=== PATIENT | male | born 1950 | race Caucasian/White ===

== ENCOUNTER 2017-07-30 14:07 | Inpatient (IN) | payer MEDICARE ==
[~2017-07-30] VITALS: Ht 177.8 cm; Wt 84.8 kg
[~2017-07-30 14:07] MED LIST: ASPI81TA31 PO
--- NOTE | 2017-07-30 14:15 | NUR ---
PATIENT BROUGHT IN BY FAMILY FOR C/O VISION DISTURBANCE AND FACIAL DROOPING. STATES "HE ATE SHRIMP 2 NIGHTS AGO THEN VOMITIED. THEN THE NEXT DAY HIS SMILE WAS NOT THE SAME" PER . PATIENT IS AWAKE, ALERT, ORIENTED X4. HE HAS NO COMPLAINTS FROM THE NECK DOWN, NO SENSORY OR MOTOR IMPAIRMENTS. HIS ONLY COMPLAINT IS IN THE FACE AND VISION. DR FERRARA CALLED TO BEDSIDE RIGHT AWAY. PLACED ON CONTINUOUS CARDIAC MONITORING. 12 LEAD EKG STARTED. IV PLACED. ACCUCHECK IN PROCESS.
[2017-07-30] MEDS ORDERED: INSULIN SQ (14:18)
--- NOTE | 2017-07-30 14:24 | NUR ---
Blood sugar of 78. Md. notified.
--- NOTE | 2017-07-30 14:26 | NUR ---
Code stroke activated per Dr. Seun munguia.
--- NOTE | 2017-07-30 14:28 | NUR ---
Called TeleStroke, Dr. Alonzo to call back.
--- NOTE | 2017-07-30 14:29 | NUR ---
Dr. Kohli at bedside assessing patient. Code stroke called at around 3013
--- NOTE | 2017-07-30 14:33 | NUR ---
Pt to CT via juan carlos with pharmacy technician program director Opal PHIPPS with ACLS guidelines in place.
--- NOTE | 2017-07-30 14:40 | NUR ---
Dr. Kohli speaking with (neuro) via telephone.
[2017-07-30 14:44] LABS: BASOPHILS % (AUTO) 0.5 % (0.0-2.0); EOSINOPHILS # (AUTO) 0.2 K/uL (0.0-0.7); EOSINOPHILS % (AUTO) 1.7 % (0.0-7.0); HEMATOCRIT 39.9 % (40-50); HEMOGLOBIN 13.3 G/DL (14.0-18.0); LYMPHOCYTES # (AUTO) 2.1 K/UL (0.8-4.8); MEAN CORPUSCULAR HEMOGLOBIN 31.9 UUG (27.0-31.0); MEAN CORPUSCULAR HGB CONC 33 g/dL (32.0-37.0); MEAN CORPUSCULAR VOLUME 95.5 FL (82.0-92.0); MONOCYTES # (AUTO) 0.7 K/UL (0.1-1.30); MONOCYTES % (AUTO) 8.1 % (0.0-11.0); NEUTROPHILS # (AUTO) 6.1 K/UL (1.8-8.9); NEUTROPHILS % (AUTO) 66.7 % (38.5-71.5); PLATELET COUNT (AUTO) 177 K/UL (150-450); RED BLOOD CELL COUNT(AUTO) 4.18 MIL/UL (4.7-6.1); WHITE BLOOD COUNT (AUTO) 9.1 K/UL (4.0-11.2)
--- NOTE | 2017-07-30 14:48 | NUR ---
Patient back from CT. accompanied by rn.
[2017-07-30 14:52] LABS: CREATININE 2.7 mg/dL (0.6-1.3); POTASSIUM 3.9 mmol/L (3.5-5.1)
--- NOTE | 2017-07-30 15:20 | NUR ---
PATIENT SI AWAKE AND ALERT WITH NO NEW COMPLAINTS. HE WAS SABLE TO SWALLOW WATER WITH NO DIFFICULTY AT ALL. HE STATES HE HAD FRUIT AND EGGS THIS MORNING EVEN WITH HIS FACIAL DROOP.
--- NOTE | 2017-07-30 16:30 | NUR ---
PATIENT AND FAMILY AWARE OF PENDING ADMISSION.
--- NOTE | 2017-07-30 16:42 | NUR ---
REPORT GIVEN TO JULIO CESAR PHIPPS.
--- NOTE | 2017-07-30 17:44 | NUR ---
WAITING FOR DR WEN TO CALL BACK SO PATIENT CAN BE ADMITTED TO FLOOR.
[2017-07-30 18:57] VITALS: BP 150/68
[2017-07-30 20:54] VITALS: BP 146/68
[2017-07-31 00:05] VITALS: BP 150/72
--- NOTE | 2017-07-31 01:15 | NUR ---
RECEIVED PATIENT ALERT AND ORIENTED X4 IN BED. VSS. VISIBLE FACIAL ASYMMETRY WITH COMPLAINT OF DOUBLE VISION ON RT EYE. OTHERWISE PATIENT HAS NO OTHER NEUROLOGICAL DEFICIT NOTED. SEEN BY DR. WEN IN THE ROOM. NIHSS SCORE DONE SCORE OF 5 NOTED TO MD. SWALLOWING EVAL DONE BEFORE ORAL INTAKE. GIVEN DOSE OF ASPIRIN ORDERED. STARTED IV FLUIDS 1/2 NSS AT 70 ML/HR. STARTED DVT PUMPS. PT,OT,ST,CM AND PAYROLL MASTER ARE CONSULTED ORDERED. OTHERWISE PATIENT IS SLEEPING RIGHT NOW, WILL CONT TO MONITOR NEUROLOGIC STATUS.
[2017-07-31 05:35] VITALS: BP 152/74
--- NOTE | 2017-07-31 06:18 | NUR ---
NO CHANGE ON NEUROLOGIC STATUS. NO RESPIRATORY DISTRESS. BP STABLE. KEPT SAFE AND MONITORED. CALL LIGHT WITHIN REACH.
[2017-07-31 06:35] LABS: BASOPHILS # (AUTO) 0.1 K/uL (0.0-8.0); BASOPHILS % (AUTO) 0.7 % (0.0-2.0); EOSINOPHILS # (AUTO) 0.2 K/uL (0.0-0.7); EOSINOPHILS % (AUTO) 2.8 % (0.0-7.0); HEMATOCRIT 38.7 % (40-50); HEMOGLOBIN 12.8 G/DL (14.0-18.0); LYMPHOCYTES % (AUTO) 23.3 % (20.5-51.5); MEAN CORPUSCULAR HEMOGLOBIN 31.6 UUG (27.0-31.0); MEAN CORPUSCULAR HGB CONC 33 g/dL (32.0-37.0); MEAN CORPUSCULAR VOLUME 95.1 FL (82.0-92.0); MONOCYTES # (AUTO) 0.7 K/UL (0.1-1.30); MONOCYTES % (AUTO) 8.5 % (0.0-11.0); NEUTROPHILS # (AUTO) 5.6 K/UL (1.8-8.9); NEUTROPHILS % (AUTO) 64.7 % (38.5-71.5); PLATELET COUNT (AUTO) 169 K/UL (150-450); RED BLOOD CELL COUNT(AUTO) 4.06 MIL/UL (4.7-6.1); WHITE BLOOD COUNT (AUTO) 8.6 K/UL (4.0-11.2)
[2017-07-31 07:12] LABS: THYROID STIMULATING HORMONE 1.138 mIU/mL (0.358-3.740)
[2017-07-31 07:22] LABS: BILIRUBIN,TOTAL 0.5 mg/dL (0.2-1.0); CREATININE 2.4 mg/dL (0.6-1.3); MAGNESIUM 1.9 mg/dL (1.8-2.4); PHOSPHOROUS 3.8 mg/dL (2.5-4.9); POTASSIUM 3.6 mmol/L (3.5-5.1); TOTAL PROTEIN, SERUM 6.4 g/dL (6.4-8.2)
[2017-07-31 09:57] VITALS: BP 159/77
--- NOTE | 2017-07-31 10:08 | NUR ---
PATIENT PARTICIPATED WITH PT. AMBULATED AROUND THE UNIT WITH NO DIFFICULTY NOTED. TOLERATED WELL.
[2017-07-31 11:50] VITALS: BP 166/73
[2017-07-31 12:09] LABS: *BILIRUBIN,URIN NEGATIVE (NEGATIVE); *BLOOD, URINE 1+ (NEGATIVE); *CLARITY,URINE CLEAR (CLEAR); *COLOR,URINE YELLOW (YELLOW); *KETONES,URINE NEGATIVE (NEGATIVE); *UROBILINOGEN,URINE 0.2 E.U./dl (NORMAL); LEUKOCYTE ESTERASE ,URINE NEGATIVE (NEGATIVE); NITRITE, URINE NEGATIVE (NEGATIVE); UGLUCOSE TRACE (NEGATIVE)
[2017-07-31 12:11] LABS: *PROTEIN,URINE 3+ (NEGATIVE)
[2017-07-31 12:38] LABS: BACTERIA,URINE FEW /HPF (NONE SEEN); SQUAMOUS EPITHELIAL CELL,UR FEW /HPF (NONE SEEN); WBC,URINE 0-3 /HPF (0-3)
[2017-07-31 12:58] LABS: *AMPHETAMINE, URINE NEGATIVE (NEGATIVE); *BARBITURATE, URINE NEGATIVE (NEGATIVE); *CANNABINOID, URINE NEGATIVE (NEGATIVE); *COCCAINE, URINE NEGATIVE (NEGATIVE); *OPIATE, URINE NEGATIVE (NEGATIVE); *PHENCYCLIDINE SCREEN,URINE NEGATIVE (NEGATIVE)
--- NOTE | 2017-07-31 13:50 | NUR ---
PATIENT PULLED IV OUT, TOOK TELEMONITOR OFF AND GOT DRESSED. PATIENT'S AT BEDSIDE, STATES PATIENT, "IS MAD AND WANTS TO GO HOME." ENCOURAGED PATIENT TO STAY A LITTLE LONGER TO TALK TO THE MD. AGREED TO WAIT A LITTLE LONGER. INDIO CABEZAS CUSTOMER SERVICES SUPERVISOR NOTIFIED.
[2017-07-31 15:14] VITALS: BP 169/90
--- NOTE | 2017-07-31 15:15 | NUR ---
PATIENT SEEN BY DR. KELLY
[2017-07-31] MEDS ORDERED: PRED20TA PO ×3 (16:01→16:07)
[2017-07-31] MEDS ORDERED: PRED-170 PO (16:01)
[2017-07-31] MEDS ORDERED: AMLO5TAB2 PO (16:01)
[2017-07-31] MEDS ORDERED: ACET325T53 PO (16:01)
[2017-07-31] MEDS ORDERED: ATOR40TA PO (16:01)
[2017-07-31] MEDS ORDERED: POLY15DR27 RIGHTEYE (16:01)
[2017-07-31] MEDS ORDERED: PRED10TA PO (16:01)
[2017-07-31] MEDS ORDERED: VALA500T PO (16:01)
[2017-07-31] MEDS ORDERED: PRED50TA PO (16:10)
--- NOTE | 2017-07-31 16:57 | NUR ---
DISCHARGING PATIENT HOME IN A STABLE CONDITION. DISCHARGE INSTRUCTIONS PROVIDED TO PATIENT AND HIS , MEGAN. LIST OF BELONGING SIGNED AND ALL WAS TAKEN. STROKE S/S PROVIDED AND BOTH WHERE ABLE TO VOIDED S/S OF STROKE AND WHAT TO CALL 911 IF IT HAPPENS. STATES WILL FLU WITH PCP AT [facility] TOMORROW. REFUSED TO REVIEW PRESCRIPTIONS WITH PHARMACIST. DIET ORDERS AND SMOKING CESSATION AND TEACHING DISCUSSED WITH PATIENT AND HIS , VOICED UNDERSTANDING. STATES WILL RECEIVE PNA VACC ELSE WHERE. PATIENT LEAVING VIA PRIVET CAR ACCOMPANIED BY HIS .
== END 2017-07-31 17:30 | disposition home or self-care (01) | DRG 74 ==
LOC: ER 14:07 → TELE 17:56
PROVIDERS: ADMIT Internal Medicine; ATTEND Internal Medicine
DX: G51.0 Bell's palsy (principal); E11.22 Type 2 diabetes mellitus with diabetic chronic kidney disease; I13.10 Hypertensive heart and chronic kidney disease without heart failure, with stage 1 through stage 4 chronic kidney disease, or unspecified chronic kidney disease; J98.11 Atelectasis; E11.51 Type 2 diabetes mellitus with diabetic peripheral angiopathy without gangrene; E88.09 Other disorders of plasma-protein metabolism, not elsewhere classified; E78.5 Hyperlipidemia, unspecified; D53.9 Nutritional anemia, unspecified; N18.9 Chronic kidney disease, unspecified; Z86.73 Personal history of transient ischemic attack (TIA), and cerebral infarction without residual deficits; F17.210 Nicotine dependence, cigarettes, uncomplicated; H53.2 Diplopia; R94.31 Abnormal electrocardiogram [ECG] [EKG]; H02.401 Unspecified ptosis of right eyelid
CPT/HCPCS: 36415; 70030-TC; 70450; 71010; 80307; 83605; 83735; 84100; 84443; 85025; 85651; 85730; 87040; 87086; 92523; 92610; 93005; 93307; 93880; A4663; J1815; J3490; J7512

== ENCOUNTER 2019-02-17 18:08 | Emergency (ER) | payer MEDICARE ==
[~2019-02-17] VITALS: Ht 175.3 cm; Wt 80.3 kg
[~2019-02-17 18:08] MED LIST changes: +ACET325T53 PO; +AMLO5TAB9 PO; +ATOR40TA PO; +INSULIN SQ; +POLY15DR27 RIGHTEYE; +PRED10TA PO; +PRED20TA PO; +PRED50TA PO; +VALA500T PO
--- NOTE | 2019-02-17 18:27 | NUR ---
PT A/OX4, PRESENTS TO THE ER C/O PAIN IN L FOOT. UPON INSPECTION, WOUND PRESENT ON LATERAL ASPECT OF L FOOT. PT REPORTS HE WAS ON ORAL ANTIBIOTICS W/ UNKNOWN TOPICAL OINTMENT BUT THE PAIN WORSENED TODAY. PT REPORTS PROVOKED PAIN UPON WEIGHT BEARING, SHARP IN QUALITY, DOES NOT RADIATE, 10/10, CONSTANT. PT DENIES C/P, SOB, N/V/D, DIZZINESS, HEADACHE.
--- NOTE | 2019-02-17 18:51 | NUR ---
AMI ULLOA AT BEDSIDE FOR MSE.
--- NOTE | 2019-02-17 19:02 | NUR ---
Patient discharged to home in stable conditon. Written and verbal after care instructions given. Patient verbalizes understanding of instructions. ALL BELONGINGS W/ PT. PT SELF-AMBULATED W/O DIFFICULTY.
[2019-02-17 19:03] VITALS: BP 141/62
== END 2019-02-17 19:03 | disposition home or self-care (01) ==
LOC: ER 18:08
DX: L84 Corns and callosities (principal); I10 Essential (primary) hypertension; E78.00 Pure hypercholesterolemia, unspecified; F17.210 Nicotine dependence, cigarettes, uncomplicated; E11.9 Type 2 diabetes mellitus without complications; Z79.82 Long term (current) use of aspirin; Z79.4 Long term (current) use of insulin; Z79.899 Other long term (current) drug therapy
CPT/HCPCS: A4663

== ENCOUNTER 2019-09-20 02:54 | Inpatient (IN) | payer MEDICARE ==
[~2019-09-20] VITALS: Ht 172.7 cm; Wt 71.7 kg
--- NOTE | 2019-09-20 02:55 | NUR ---
MD AT BEDSIDE FORHX AND PHYSICAL PT C/O 06/26 CHEST PN ABLE TO SPEAK CLEAR AND COMPLETE SENTENCES, IN [place] FAMILY TRANSLATED DENIES CHANGESE IN LOC +HX OF BELLS PALSY, +SURGERY TO L HAND SIDERAILSX2 UP BED AT LOWEST POSITION
[2019-09-20] MEDS ORDERED: NITROGLYCERIN 0.4 MG/TAB BOTTLE SL ONE ×2 (03:07→03:15)
--- NOTE | 2019-09-20 03:16 | NUR ---
After 1st dose of nitro SL pain is down to a 5/10 from 8/10 chest discomfort. Gave 2nd dose of nitro sub lingual.
[2019-09-20 03:22] LABS: BASOPHILS # (AUTO) 0.1 K/uL (0.0-8.0); BASOPHILS % (AUTO) 1.2 % (0.0-2.0); EOSINOPHILS # (AUTO) 0.3 K/uL (0.0-0.7); EOSINOPHILS % (AUTO) 3.1 % (0.0-7.0); HEMATOCRIT 30.1 % (36.7-47.1); HEMOGLOBIN 10.2 g/dL (12.5-16.3); LYMPHOCYTES # (AUTO) 1.5 K/uL (20.0-40.0); LYMPHOCYTES % (AUTO) 14.3 % (20.5-51.5); MEAN CORPUSCULAR HEMOGLOBIN 32.4 uug (23.8-33.4); MEAN CORPUSCULAR HGB CONC 34 g/dL (32.5-36.3); MONOCYTES # (AUTO) 0.6 K/uL (2.0-10.0); NEUTROPHILS # (AUTO) 7.7 K/uL (1.8-8.9); NEUTROPHILS % (AUTO) 75.4 % (38.5-71.5); PLATELET COUNT (AUTO) 164 K/uL (152-348); RED BLOOD CELL COUNT(AUTO) 3.14 MIL/uL (4.06-5.63); WHITE BLOOD COUNT (AUTO) 10.2 K/uL (3.6-10.2)
--- NOTE | 2019-09-20 03:22 | NUR ---
After 2nd dose of Nitro pain is 3/10 chest discomfort. Gave 3rd dose of nitro sublingual. BP 124/58, HR 82, 02 sat 92%.
[2019-09-20] MEDS ORDERED: NITROGLYCERIN OINT 1 GM PACKET TP ONE ×2 (03:29→03:30)
[2019-09-20] MEDS ORDERED: ONDANSETRON 4 MG/2 ML VIAL ONE (03:29)
[2019-09-20] MEDS ORDERED: MORPHINE SULFATE 2 MG/1 ML DISP.SYRIN ONE (03:29)
[2019-09-20] MEDS ORDERED: ONDANSETRON 4 MG/2 ML VIAL IV ONE (03:30)
[2019-09-20] MEDS ORDERED: MORPHINE SULFATE 2 MG/1 ML DISP.SYRIN IV ONE (03:30)
[2019-09-20 03:41] LABS: CREATININE 4.5 mg/dL (0.6-1.3); POTASSIUM 4.5 mmol/L (3.5-5.1)
--- NOTE | 2019-09-20 03:45 | NUR ---
BP 114/56 HR 69 SPO2 93% PT C/O HEADACHE 01/24 CHEST PN AT 12/27 ABLE TO TOLERATE IV PN MEDS ORDERED KEPT WARM DRY AND COMFORTABLE SIDERAILSX2 UP BED AT LOWEST POSITION
[2019-09-20] MEDS ORDERED: lantus SUBCUT (03:50)
[2019-09-20] MEDS ORDERED: FOLI0.8T2 PO (03:50)
[2019-09-20] MEDS ORDERED: TRAZ-182 PO (03:50)
[2019-09-20] MEDS ORDERED: AMLO10TA7 PO (03:50)
[2019-09-20] MEDS ORDERED: sodium bicarbonate PO (03:50)
[2019-09-20 03:54] LABS: BILIRUBIN,DIRECT 0.1 mg/dL (0.0-0.2); BILIRUBIN,TOTAL 0.5 mg/dL (0.2-1.0); TOTAL PROTEIN, SERUM 7.1 g/dL (6.4-8.2)
[2019-09-20] MEDS ORDERED: ASPIRIN 325 MG TABLET ONE (04:00)
[2019-09-20] MEDS ORDERED: ASPIRIN 325 MG TABLET PO ONE (04:00)
--- NOTE | 2019-09-20 04:08 | NUR ---
CALL FOR BED DONE
--- NOTE | 2019-09-20 04:14 | NUR ---
MARTIN HARPER ON THE PHONE WITH DR GEORGE PT WILL BE ADMITTED TO [facility] (STILL PENDING) DX NON STEMI
[2019-09-20] MEDS ORDERED: Z GUARD REMEDY PASTE 57 GM TUBE TOP PRN (04:15)
[2019-09-20] MEDS ORDERED: ACETAMINOPHEN 325 MG TABLET PO PRN (04:15)
[2019-09-20] MEDS ORDERED: MAGNESIUM HYDROXIDE 30 ML LIQUID UDC PO PRN (04:15)
[2019-09-20] MEDS ORDERED: MORPHINE SULFATE 2 MG/1 ML DISP.SYRIN IV PRN ×2 (04:15→06:30)
[2019-09-20] MEDS ORDERED: HYDROCODONE/APAP 5-325MG TABLET PO PRN (04:15)
[2019-09-20] MEDS ORDERED: TEMAZEPAM 15 MG CAPSULE PO PRN (04:15)
[2019-09-20] MEDS ORDERED: DEXTROSE 50% 50 ML DISP.SYRIN IV PRN (04:15)
[2019-09-20] MEDS ORDERED: ONDANSETRON 4 MG/2 ML VIAL IV PRN (04:15)
[2019-09-20] MEDS ORDERED: NITROGLYCERIN 0.4 MG/TAB BOTTLE SL PRN ×2 (04:15→06:33)
--- NOTE | 2019-09-20 04:35 | NUR ---
NOTE: NO BLOOD DRAW AND NO BP ON LEFT ARM PER FAMILY, PT HAS HAD A FISTULA ON LEFT WRIST ENDORSED PT MIGHT UNDERGO DIALYSIS IN THE NEAR FUTURE
--- NOTE | 2019-09-20 04:49 | NUR ---
HAND OFF AND SBAR GIVEN TO AIDA PHIPPS PT WILL BE ADMITTED TO [facility] RM 312 UNDER MARTIN HARPER DX NON STEMI ALL BELONGINGS W/ PT, BELONGINGS LIST SIGNED
--- NOTE | 2019-09-20 04:58 | NUR ---
PT IS ASLEEP BUT EASILY ROUSED NAD KEPT WARM DRY AND COMFORTABLE SIDERAILSX2 UP BED AT LOWEST POSITION
--- NOTE | 2019-09-20 05:00 | NUR ---
PT TRANSFERRED TO [facility] BY [facility]
--- NOTE | 2019-09-20 05:20 | NUR ---
Received patient from ED RN via juan carlos, accompanied by ED RN. Patient awake and alert and was able to ambulate to hospital bed. Patient made comfortable in bed. Noted with IV access on right AC patent and intact. Per patient, he no longer has any chest pain and no other complaints at the moment. Attended all needs. Will continue to monitor.
[2019-09-20 05:30] VITALS: BP 123/61
[2019-09-20] MEDS: BLOOD SUGAR DIAGNOSTIC 1 EACH STRIP VI SCH ×3 (06:35→16:34)
[2019-09-20] MEDS ORDERED: PANTOPRAZOLE SODIUM 40 MG TABLET.DR PO SCH (07:00)
--- NOTE | 2019-09-20 07:30 | NUR ---
Awake, alert, oriented x 4. Denies chest pain, not in distress. Tele 1st degree AVB
[2019-09-20 08:07] VITALS: BP 113/54
[2019-09-20] MEDS ORDERED: FOLIC ACID/VITAMIN B COMP W-C TABLET PO SCH (09:00)
[2019-09-20] MEDS ORDERED: ASPIRIN 81 MG TAB.CHEW PO SCH (09:00)
[2019-09-20] MEDS ORDERED: AMLODIPINE 10 MG TABLET PO SCH (09:00)
[2019-09-20] MEDS ORDERED: METOPROLOL TARTRATE 25 MG TABLET PO SCH (09:15)
[2019-09-20] MEDS ORDERED: HEPARIN/D5W DRIP 500 ML IV PRN (09:45)
[2019-09-20] MEDS ORDERED: HEPARIN SODIUM,PORCINE 5,000 UNITS/ML VIAL IV PRN (10:00)
[2019-09-20] MEDS ORDERED: HEPARIN SODIUM,PORCINE 5,000 UNITS/ML VIAL IV ONE (10:15)
--- NOTE | 2019-09-20 10:30 | NUR ---
Seen and examined by Button Tufting Machine Operator Dr. Chin, discussed condition and plan of care with patient and family at bedside. Heparin drip started at 1100 units at 22ml/hr with bolus given.
[2019-09-20 11:52] VITALS: BP 116/61
[2019-09-20] MEDS: INSULIN REGULAR, HUMAN 300 UNIT/3 ML VIAL SQ PRN ×2 (12:12→16:35)
--- NOTE | 2019-09-20 12:30 | NUR ---
O2 sat RA 84%.. Placed on O2 at 4L/NC with O2 sat of 88% only. Placed on O2 at 8L/mask, O2 sat to 90%, increased to 10l/mask with O2 sat of 94-96%. Another IV site placed to right forearm.
[2019-09-20] MEDS ORDERED: FUROSEMIDE 40 MG/4 ML VIAL IV ONE ×2 (13:45→16:30)
--- NOTE | 2019-09-20 13:52 | NUR ---
Changes in rhythm, prolonged block to 0.4 with PVC. O2 per mask ay 10L O2 SAT 94%. Dr. Chin informed with orders for CXR done. Lasix to be given. Echocardiogram done. Dr. Washington informed.
[2019-09-20 14:07] VITALS: BP 125/63
[2019-09-20 15:15] VITALS: BP 138/65
--- NOTE | 2019-09-20 15:16 | NUR ---
Critical lab for troponin [address] Chin. With urine output of 100ml. Will moniotr urine output in the next hour. ABG ordered.. Latest VS, BP 138/65 HR 71 RR 22 92% at 10L/mask
[2019-09-20 15:36] LABS: ABG BASE EXCESS -5.9 mmol/L; ABG HCO3 18.4 mmol/L; ABG PCO2 31.8 mmHg (35.0-45.0); ABG PH 7.381 (7.350-7.450); ABG PO2 49.4 mmHg (75.0-100.0); ABG SITE RIGHT BRACHIAL; ABG TOTAL HEMOGLOBIN 9.7 G/dL (13.5-18.0); COHb 1.4 % (0.5-1.5); MetHb 0.1 % (0.0-1.5); O2Hb 82.9 % (94.0-97.0)
--- NOTE | 2019-09-20 16:37 | NUR ---
Assisted to the bathroom, urinal provided but patient unable to measure, but medium amount per patient, Lasix order not given. Accepted at [facility]. To be transferred with Heparin drip. Transport corn picker arranged for 6 pm.
--- NOTE | 2019-09-20 18:30 | NUR ---
Called Raghav[facility] of [facility] Intake, report given to Jeannette PHIPPS, [facility]. Patient will be gong to 6SW RM [id number].
--- NOTE | 2019-09-20 19:40 | NUR ---
Discharged to [facility], with Heparin drip at 1100 units/hr, O2 at 6L/mask with O2 sat of 94% via [facility] ambulance
[2019-09-20] MEDS ORDERED: INSULIN GLARGINE,HUM 300 UNITS/3 ML CARTRIDGE SQ SCH (21:00)
[2019-09-20] MEDS ORDERED: TRAZODONE 50 MG TABLET PO SCH (21:00)
[2019-09-20] MEDS ORDERED: ATORVASTATIN 40 MG TABLET PO SCH (21:00)
[2019-09-20] MEDS ORDERED: LANTUS SUBCUT SCH (21:00)
[2019-09-21] MEDS ORDERED: ASPIRIN 81 MG TAB.CHEW PO SCH (09:00)
== END 2019-09-20 21:52 | disposition short-term general hospital (02) | DRG 280 ==
LOC: ER 02:55 → TELE-TD3 04:50
PROVIDERS: ADMIT Nurse Practitioner Acute Care; ATTEND Internal Medicine
DX: I21.4 Non-ST elevation (NSTEMI) myocardial infarction (principal); I50.33 Acute on chronic diastolic (congestive) heart failure; I13.2 Hypertensive heart and chronic kidney disease with heart failure and with stage 5 chronic kidney disease, or end stage renal disease; N18.5 Chronic kidney disease, stage 5; E11.22 Type 2 diabetes mellitus with diabetic chronic kidney disease; F17.210 Nicotine dependence, cigarettes, uncomplicated; Z86.73 Personal history of transient ischemic attack (TIA), and cerebral infarction without residual deficits; Z79.82 Long term (current) use of aspirin; E11.51 Type 2 diabetes mellitus with diabetic peripheral angiopathy without gangrene; I25.10 Atherosclerotic heart disease of native coronary artery without angina pectoris; I70.0 Atherosclerosis of aorta; I44.0 Atrioventricular block, first degree; G51.0 Bell's palsy; E78.5 Hyperlipidemia, unspecified; D63.8 Anemia in other chronic diseases classified elsewhere; E78.00 Pure hypercholesterolemia, unspecified; Z79.899 Other long term (current) drug therapy; R06.03 Acute respiratory distress
CPT/HCPCS: 36415; 36600; 70030-TC; 71045; 85025; 85730; 93005; 93307; G0378; J1644; J1815; J1940; J2270; J2405

== ENCOUNTER 2021-10-21 11:31 | Inpatient (IN) | payer MEDICARE, OTHER ==
[~2021-10-21] VITALS: Ht 177.8 cm; Wt 81.6 kg
[~2021-10-21 11:31] MED LIST changes: -ACET325T53 PO; +AMLO10TA59 PO; -AMLO5TAB9 PO; +FOLI0.8T2 PO; -INSULIN SQ; -POLY15DR27 RIGHTEYE; -PRED10TA PO; -PRED20TA PO; -PRED50TA PO; +TRAZ-182 PO; -VALA500T PO; +lantus SUBCUT; +sodium bicarbonate PO
--- NOTE | 2021-10-21 11:55 | NUR ---
PT IS IN ROOM #2A. DR GEORGE EVALUATED THE PT.
[2021-10-21] MEDS ORDERED: ONDANSETRON 4 MG/2 ML VIAL IV ONE (12:00)
[2021-10-21] MEDS ORDERED: NEOMY/BACITRA/POLYMYXIN B OINT UD PACKET TP ONE ×2 (12:00→12:20)
[2021-10-21] MEDS ORDERED: MORPHINE SULFATE 2 MG/1 ML DISP.SYRIN IV ONE (12:00)
[2021-10-21] MEDS ORDERED: CLOP75TA33 PO (12:10)
[2021-10-21] MEDS ORDERED: ROSU20TA2 PO (12:10)
[2021-10-21] MEDS ORDERED: OMEG1CAP55 PO (12:10)
[2021-10-21] MEDS ORDERED: LISI10TA29 PO (12:10)
[2021-10-21] MEDS ORDERED: MELA5TAB PO (12:10)
[2021-10-21] MEDS ORDERED: GABA-532 PO (12:10)
[2021-10-21] MEDS ORDERED: APIX2.5T PO (12:10)
[2021-10-21] MEDS ORDERED: CARV3.122 PO (12:10)
[2021-10-21] MEDS ORDERED: SUCR500T PO (12:10)
[2021-10-21] MEDS ORDERED: INSU100C4 SQ (12:11)
[2021-10-21 12:16] LABS: MEAN CORPUSCULAR HEMOGLOBIN 33.3 uug (23.8-33.4); MEAN CORPUSCULAR VOLUME 97.7 fL (73.0-96.2); PLATELET COUNT (AUTO) 152 K/uL (152-348)
[2021-10-21] MEDS ORDERED: MORPHINE SULFATE 2 MG/1 ML DISP.SYRIN ONE (12:19)
[2021-10-21] MEDS ORDERED: ONDANSETRON 4 MG/2 ML VIAL ONE (12:19)
[2021-10-21 12:21] LABS: CARBON DIOXIDE 28 mmol/L (21-32); CHLORIDE 101 mmol/L (98-107); CREATININE 5.3 mg/dL (0.6-1.3); GLUCOSE 181 mg/dL (74-106); POTASSIUM 4.8 mmol/L (3.5-5.1); UREA NITROGEN, BLOOD 55 mg/dL (7-18)
[2021-10-21 12:27] LABS: ALANINE AMINOTRANSFERASE 31 U/L (16-63); ALKALINE PHOSPHATASE 89 U/L (50-136); ASPARTATE AMINOTRANSFERASE 18 U/L (15-37); BILIRUBIN,TOTAL 0.6 mg/dL (0.2-1.0); TOTAL PROTEIN, SERUM 7.2 g/dL (6.4-8.2)
--- NOTE | 2021-10-21 15:25 | NUR ---
received from ER per juan carlos awake alert and oriented accompanied by KNITTING MACHINE MECHANIC and son, oriented to bed controls and room set up, tele applied- SB with first degree av block at 58, initial assessment done, initiated safety measures, pt verbalized understanding on instructions given, left arm shunt for dialysis with good bruit and thrill, call light within reach with bed alarm on.
--- NOTE | 2021-10-21 15:34 | NUR ---
REPORT WAS GIVEN TO DEVELOPMENTAL PSYCHOLOGIST. PT WAS TRANSFERED TO ROOM #315.
[2021-10-21 16:00] VITALS: BP 145/47
--- NOTE | 2021-10-21 16:00 | NUR ---
seen by Cadence Monae FAA CERTIFIED POWERPLANT MECHANIC with orders
[2021-10-21] MEDS ORDERED: Medication Not On Formulary EA (Sucroferric Oxyhydroxide (Velphoro) 500 MG) PO SCH (16:30)
[2021-10-21] MEDS ORDERED: ZOLPIDEM 5 MG TABLET PO PRN (16:45)
[2021-10-21] MEDS ORDERED: ACETAMINOPHEN 325 MG TABLET PO PRN (16:45)
[2021-10-21] MEDS ORDERED: MAGNESIUM HYDROXIDE 30 ML LIQUID UDC PO PRN (16:45)
[2021-10-21] MEDS ORDERED: ONDANSETRON 4 MG/2 ML VIAL IV PRN (16:45)
[2021-10-21] MEDS ORDERED: DEXTROSE 50% 50 ML DISP.SYRIN IV PRN (16:45)
[2021-10-21] MEDS: CARVEDILOL 3.125 MG TABLET PO SCH (17:00)
[2021-10-21 17:15] VITALS: BP_SYST 163; BP_SYST 164; BP_DIAS 57; BP_DIAS 60
[2021-10-21 17:20] VITALS: BP 140/52
[2021-10-21] MEDS: GABAPENTIN 100 MG CAPSULE PO SCH (17:48)
[2021-10-21] MEDS: LISINOPRIL 10 MG TABLET PO SCH (17:48)
[2021-10-21] MEDS ORDERED: Medication Not On Formulary EA (Rosuvastatin Calcium (Crestor) 1 TAB) PO SCH (18:00)
--- NOTE | 2021-10-21 18:32 | NUR ---
dinner taken, all needs attended and met, call light within reach, no distress noted
[2021-10-21 20:19] VITALS: BP 141/49
[2021-10-21] MEDS: ATORVASTATIN 40 MG TABLET PO SCH (21:28)
[2021-10-21] MEDS: INSULIN GLARGINE,HUM 300 UNITS/3 ML CARTRIDGE SQ SCH (21:31)
[2021-10-21] MEDS: INSULIN REGULAR, HUMAN 300 UNIT/3 ML VIAL SQ PRN (21:31)
[2021-10-21] MEDS: BLOOD SUGAR DIAGNOSTIC 1 EACH STRIP VI SCH (21:32)
[2021-10-22] VITALS (7 sets, daily range): BP systolic 106–140; BP diastolic 38–58
--- NOTE | 2021-10-22 06:00 | NUR ---
No bleeding noted this shift. pt is in no acute distress.
[2021-10-22] MEDS: BLOOD SUGAR DIAGNOSTIC 1 EACH STRIP VI SCH ×4 (06:17→20:03)
[2021-10-22 06:37] LABS: MEAN CORPUSCULAR HEMOGLOBIN 32.9 uug (23.8-33.4); MEAN CORPUSCULAR VOLUME 97.7 fL (73.0-96.2); PLATELET COUNT (AUTO) 133 K/uL (152-348)
[2021-10-22 06:46] LABS: CARBON DIOXIDE 25 mmol/L (21-32); CHLORIDE 104 mmol/L (98-107); CHOLESTEROL 145 mg/dL (<200); CREATININE 5.9 mg/dL (0.6-1.3); GLUCOSE 156 mg/dL (74-106); HDL CHOLESTEROL 27 mg/dL (40-60); MAGNESIUM 2.3 mg/dL (1.8-2.4); PHOSPHOROUS 4.5 mg/dL (2.5-4.9); POTASSIUM 4.3 mmol/L (3.5-5.1); TRIGLYCERIDES 277 MG/DL (30-150); UREA NITROGEN, BLOOD 61 mg/dL (7-18)
--- NOTE | 2021-10-22 06:55 | NUR ---
uneventful night pt slept comfortable. Pt refused to do orthostatic b/p -pt request to sleep. Pt denies any c/o pain. call light is within reach.
--- NOTE | 2021-10-22 07:58 | NUR ---
Received patient report from millinery department manager nurse. Patient awake upon arrival to room. Patient is AxOx4. Patient showing no immediate signs of distress. Comfort measures provided, with bed in lowest position and call light within reach.
[2021-10-22] MEDS: CARVEDILOL 3.125 MG TABLET PO SCH ×2 (09:00→17:59)
[2021-10-22] MEDS: FOLIC ACID/VITAMIN B COMP W-C TABLET PO SCH (09:08)
[2021-10-22] MEDS: INSULIN REGULAR, HUMAN 300 UNIT/3 ML VIAL SQ PRN ×2 (09:12→12:00)
[2021-10-22] MEDS ORDERED: IV NORMAL SALINE 500 ML IV ONE (13:30)
[2021-10-22] MEDS ORDERED: MECLIZINE HCL 25 MG TABLET PO PRN (13:45)
--- NOTE | 2021-10-22 16:00 | NUR ---
On dialysis. Son at bedside. No acute distress noted. Attempted to change & clean facial wounds. Too painful. Soaking wounds with NS.
[2021-10-22 16:47] LABS: HEMATOCRIT 24.6 % (36.7-47.1); MEAN CORPUSCULAR HEMOGLOBIN 33.5 uug (23.8-33.4); MEAN CORPUSCULAR VOLUME 97.6 fL (73.0-96.2); PLATELET COUNT (AUTO) 132 K/uL (152-348)
[2021-10-22] MEDS ORDERED: EPOETIN ALFA 10,000 UNITS/ML VIAL SQ ONE (17:00)
[2021-10-22] MEDS ORDERED: AMLO10TA59 PO (17:39)
[2021-10-22] MEDS: GABAPENTIN 100 MG CAPSULE PO SCH (18:08)
[2021-10-22] MEDS: LISINOPRIL 10 MG TABLET PO SCH (18:08)
[2021-10-22] MEDS: ATORVASTATIN 40 MG TABLET PO SCH (20:00)
[2021-10-22] MEDS: INSULIN GLARGINE,HUM 300 UNITS/3 ML CARTRIDGE SQ SCH (20:02)
[2021-10-23] VITALS: BP 95/62
[2021-10-23 00:45] VITALS: BP 129/47
[2021-10-23 04:15] VITALS: BP 114/45
--- NOTE | 2021-10-23 05:24 | NUR ---
Slept throughout the night. Wound care done on face. Pt denies pain at this time. Able to make needs known. IV site intact. SR/SB on tele with occasional PVCs. Able to ambulate with assistance and with cane. No distress noted. Will endorse to day shift.
[2021-10-23] MEDS: BLOOD SUGAR DIAGNOSTIC 1 EACH STRIP VI SCH (06:32)
[2021-10-23 06:48] LABS: HEMATOCRIT 25.9 % (36.7-47.1); MEAN CORPUSCULAR HEMOGLOBIN 33.3 uug (23.8-33.4); MEAN CORPUSCULAR VOLUME 96.3 fL (73.0-96.2); PLATELET COUNT (AUTO) 120 K/uL (152-348)
[2021-10-23 07:06] LABS: CARBON DIOXIDE 33 mmol/L (21-32); CHLORIDE 100 mmol/L (98-107); GLUCOSE 145 mg/dL (74-106); PHOSPHOROUS 3.3 mg/dL (2.5-4.9); POTASSIUM 3.8 mmol/L (3.5-5.1); UREA NITROGEN, BLOOD 33 mg/dL (7-18)
--- NOTE | 2021-10-23 07:15 | NUR ---
Received patient asleep in bed. On room air. No signs of acute distress. Bed alarm on for safety. Call light within reach. Will continue to monitor.
[2021-10-23 07:17] LABS: IRON, SERUM 42 ug/dL (50-175)
[2021-10-23] MEDS: FOLIC ACID/VITAMIN B COMP W-C TABLET PO SCH (08:28)
[2021-10-23] MEDS: INSULIN REGULAR, HUMAN 300 UNIT/3 ML VIAL SQ PRN (08:28)
[2021-10-23 08:43] VITALS: BP 140/60
[2021-10-23] MEDS: CARVEDILOL 3.125 MG TABLET PO SCH (08:43)
[2021-10-23] MEDS ORDERED: FOLIC ACID/VITAMIN B COMP W-C TABLET PO SCH (09:00)
--- NOTE | 2021-10-23 10:10 | NUR ---
Patient left hospital AMA. On room air. No signs of acute distress. Wound care treatment done. Wound picture taken and placed in chart. Belongings accounted for and belongings list signed. Dr. Joss Diaz informed. IV access removed. chief communications officer removed. Patient left hospital via private car with son and .
== END 2021-10-23 10:05 | disposition left against medical advice (07) | DRG 73 ==
LOC: ER 11:33 → TELE3 15:11
PROVIDERS: ADMIT Nurse Practitioner Acute Care; ATTEND Nurse Practitioner Acute Care
PROC: 5A1D70Z Performance of Urinary Filtration, Intermittent, Less than 6 Hours Per Day (ICD-10-PCS; principal; 2021-10-22)
DX: G90.8 Other disorders of autonomic nervous system (principal); N18.6 End stage renal disease; I13.2 Hypertensive heart and chronic kidney disease with heart failure and with stage 5 chronic kidney disease, or end stage renal disease; H81.10 Benign paroxysmal vertigo, unspecified ear; S02.2XXA Fracture of nasal bones, initial encounter for closed fracture; W18.39XA Other fall on same level, initial encounter; Z91.81 History of falling; Y92.89 Other specified places as the place of occurrence of the external cause; E11.22 Type 2 diabetes mellitus with diabetic chronic kidney disease; I50.9 Heart failure, unspecified; Z99.2 Dependence on renal dialysis; Z79.4 Long term (current) use of insulin; D63.8 Anemia in other chronic diseases classified elsewhere; E11.9 Type 2 diabetes mellitus without complications; E78.00 Pure hypercholesterolemia, unspecified; E78.5 Hyperlipidemia, unspecified; I25.10 Atherosclerotic heart disease of native coronary artery without angina pectoris; I25.2 Old myocardial infarction; I44.0 Atrioventricular block, first degree; Z79.01 Long term (current) use of anticoagulants; Z79.02 Long term (current) use of antithrombotics/antiplatelets; Z79.82 Long term (current) use of aspirin; Z79.899 Other long term (current) drug therapy; Z82.49 Family history of ischemic heart disease and other diseases of the circulatory system; Z86.73 Personal history of transient ischemic attack (TIA), and cerebral infarction without residual deficits; Z95.5 Presence of coronary angioplasty implant and graft; M48.02 Spinal stenosis, cervical region; Z72.0 Tobacco use
CPT/HCPCS: 36415; 70030-TC; 70450; 70486; 71045; 72125; 73130; 83550; 83735; 84100; 85025; 85730; 93005; 93307; 97161; A4217; A4663; G0378; J0885; J1815; J2270; J2405; J7030; J7040

== ENCOUNTER 2021-12-31 08:49 | Inpatient (IN) | payer MEDICARE, OTHER ==
[~2021-12-31] VITALS: Ht 180.3 cm; Wt 82.6 kg
[~2021-12-31 08:49] MED LIST changes: +APIX2.5T PO; -ASPI81TA31 PO; -ATOR40TA PO; +CARV3.122 PO; +CLOP75TA33 PO; +GABA-532 PO; +INSU100C4 SQ; +LISI10TA29 PO; +MELA5TAB PO; +OMEG1CAP55 PO; +ROSU20TA2 PO; +SUCR500T PO; -TRAZ-182 PO; -sodium bicarbonate PO
[2021-12-31] MEDS ORDERED: NITROGLYCERIN 0.4 MG/TAB BOTTLE SL ONE ×2 (09:00→09:07)
[2021-12-31] MEDS ORDERED: ASPIRIN 325 MG TABLET PO ONE (09:00)
--- NOTE | 2021-12-31 09:02 | NUR ---
Pt c/o CP 6/10 after 1st Nitro, 2nd nitro 0.4 mg SL given, BP 148/73, HR 58.
--- NOTE | 2021-12-31 09:07 | NUR ---
3rd dose of Nitro given for pain /10, Bp is 142/71, HR 60.
[2021-12-31 09:12] LABS: HEMATOCRIT 34.9 % (36.7-47.1); MEAN CORPUSCULAR HEMOGLOBIN 33.1 uug (23.8-33.4); MEAN CORPUSCULAR VOLUME 97.3 fL (73.0-96.2); PLATELET COUNT (AUTO) 149 K/uL (152-348)
--- NOTE | 2021-12-31 09:22 | NUR ---
Pt states his pain is 5/10, no requesting pain med.
[2021-12-31] MEDS ORDERED: ASPIRIN 325 MG TABLET ONE (09:27)
[2021-12-31 09:28] LABS: ALANINE AMINOTRANSFERASE 34 U/L (16-63); ALKALINE PHOSPHATASE 81 U/L (50-136); ASPARTATE AMINOTRANSFERASE 21 U/L (15-37); BILIRUBIN,DIRECT 0.1 mg/dL (0.0-0.2); BILIRUBIN,TOTAL 0.4 mg/dL (0.2-1.0); CARBON DIOXIDE 26 mmol/L (21-32); CHLORIDE 99 mmol/L (98-107); CREATININE 6.8 mg/dL (0.6-1.3); GLUCOSE 177 mg/dL (74-106); TOTAL PROTEIN, SERUM 7.4 g/dL (6.4-8.2); UREA NITROGEN, BLOOD 79 mg/dL (7-18)
--- NOTE | 2021-12-31 10:10 | NUR ---
AMI ULLOA spoke to admitting, DR Flood.
[2021-12-31 11:00] VITALS: BP 135/58
[2021-12-31] MEDS ORDERED: Medication Not On Formulary EA (Sucroferric Oxyhydroxide (Velphoro) 500 MG) PO SCH (11:30)
[2021-12-31] MEDS ORDERED: MORPHINE SULFATE 2 MG/1 ML DISP.SYRIN IV PRN (11:45)
[2021-12-31] MEDS ORDERED: ACETAMINOPHEN 325 MG TABLET PO PRN (11:45)
[2021-12-31] MEDS ORDERED: ONDANSETRON 4 MG/2 ML VIAL IV PRN (11:45)
[2021-12-31 12:00] VITALS: BP 135/58
--- NOTE | 2021-12-31 12:00 | NUR ---
Received pt from ER at 1100. Reporting nurse Kathleen. Pt came into the ER ambulating with complaint of chest pain 07/27. In ER 3 doses of nitroglycerin were administered Q5min. troponin (-), chest xray clear. Pt's rapid covid was negative as well. Pt is dialysis dependent on Mondays and Fridays. He was at his clinic to get dialysis when he reported chest pain. His family then brought him to the ER. Hemodialysis consent signed and placed in chart. Order for dialysis present. Pt is on tele monitor presenting with sinus bradycardia HR 53, 1st degree block with PVCs. He is on room air saturating 98%. BP 135/58. Comfort measures provided, call light within reach. Will continue to monitor pt.
[2021-12-31] MEDS: AMLODIPINE 10 MG TABLET PO SCH (13:52)
[2021-12-31] MEDS ORDERED: LIDOCAINE HCL 1% 20 ML VIAL IJ PRN (14:30)
--- NOTE | 2021-12-31 15:00 | NUR ---
pt is having hemodialysis. HD days are mondays and fridays per Pt and family report.
[2021-12-31 16:30] VITALS: BP 136/69
[2021-12-31] MEDS ORDERED: EPOETIN ALFA 20,000 UNIT/ML ML SQ ONE (17:00)
[2021-12-31] MEDS ORDERED: Medication Not On Formulary EA (Rosuvastatin Calcium (Crestor) 1 TAB) PO SCH (18:00)
[2021-12-31] MEDS ORDERED: GABAPENTIN 100 MG CAPSULE PO SCH ×2 (18:00→21:00)
[2021-12-31] MEDS: APIXABAN 2.5 MG TABLET PO SCH (18:14)
[2021-12-31] MEDS: CARVEDILOL 3.125 MG TABLET PO SCH (18:14)
[2021-12-31] MEDS: [UNRECOGNIZED DRUG - OTHER] PO SCH (18:26)
[2021-12-31] MEDS: SUCROFERRIC OXYHYDROXIDE 500 MG PO SCH (18:26)
--- NOTE | 2021-12-31 18:43 | NUR ---
Pt had 2.5 L removed by hemodialysis today. Vitals post HD: BP 125/63 HR 53 [id number] 97% on room air. pt tolerated HD well.Son is at bedside. Home medications taken to pharmacy and reconciled. Pt tolerated meal well. Gave preferences to Dietary. Comfort measures provided, call light within reach. Will endorse to clerical assigner.
[2021-12-31] MEDS ORDERED: DEXTROSE 50% 50 ML DISP.SYRIN IV PRN (18:45)
[2021-12-31] MEDS ORDERED: INSULIN REGULAR, HUMAN 300 UNIT/3 ML VIAL SQ PRN (18:45)
[2021-12-31] MEDS ORDERED: MELATONIN 3 MG TABLET PO SCH (19:00)
--- NOTE | 2021-12-31 20:00 | NUR ---
RECEIVED PATIENT AWAKE IN BED. A/O X3. VERY PLEASANT WHEN APPROACHED. VS WNL. ON TELE SR/SB WITH OCCASIONAL V-PACING. DENIES ANY PAIN OR DISCOMFORT. NO RESP. DISTRESS NOTED. HEPLOCK INTACT AND PATENT. CALL LIGHT IN REACH. ALL NEEDS ATTENDED, WILL CONTINUE TO MONITOR AND ASSESS.
[2021-12-31 20:09] VITALS: BP 108/56
[2021-12-31] MEDS: BLOOD SUGAR DIAGNOSTIC 1 EACH STRIP VI SCH (20:18)
[2021-12-31] MEDS ORDERED: LISINOPRIL 10 MG TABLET PO SCH (21:00)
[2021-12-31] MEDS ORDERED: INSULIN GLARGINE,HUM 300 UNITS/3 ML CARTRIDGE SQ SCH (21:00)
[2021-12-31] MEDS ORDERED: DOCUSATE SODIUM 100 MG CAPSULE PO SCH (21:00)
[2021-12-31] MEDS ORDERED: LANTUS 10 UNIT SUBCUT SCH (21:00)
[2021-12-31] MEDS ORDERED: ATORVASTATIN 40 MG TABLET PO SCH (21:00)
[2021-12-31 23:57] VITALS: BP 119/54
[2022-01-01 04:06] VITALS: BP 114/54
[2022-01-01] MEDS: BLOOD SUGAR DIAGNOSTIC 1 EACH STRIP VI SCH (06:24)
[2022-01-01 06:46] LABS: HEMATOCRIT 34.8 % (36.7-47.1); MEAN CORPUSCULAR VOLUME 96.7 fL (73.0-96.2); PLATELET COUNT (AUTO) 155 K/uL (152-348)
[2022-01-01] MEDS ORDERED: PANTOPRAZOLE SODIUM 40 MG TABLET.DR PO SCH (07:00)
[2022-01-01 07:20] LABS: ALANINE AMINOTRANSFERASE 30 U/L (16-63); ALKALINE PHOSPHATASE 78 U/L (50-136); ASPARTATE AMINOTRANSFERASE 21 U/L (15-37); BILIRUBIN,TOTAL 0.4 mg/dL (0.2-1.0); CARBON DIOXIDE 27 mmol/L (21-32); CHLORIDE 97 mmol/L (98-107); CHOLESTEROL 163 mg/dL (<200); GLUCOSE 120 mg/dL (74-106); HDL CHOLESTEROL 34 mg/dL (40-60); MAGNESIUM 2.5 mg/dL (1.8-2.4); PHOSPHOROUS 4.7 mg/dL (2.5-4.9); POTASSIUM 4.2 mmol/L (3.5-5.1); TOTAL PROTEIN, SERUM 7.1 g/dL (6.4-8.2); TRIGLYCERIDES 191 MG/DL (30-150); UREA NITROGEN, BLOOD 49 mg/dL (7-18); URIC ACID 4.2 mg/dL (3.5-7.2)
--- NOTE | 2022-01-01 07:20 | NUR ---
Received patient resting in bed. AOx3-4. On room air. No signs of acute distress. Patient denies pain/ discomfort. Patient denies chest pain at this time. IV access patent and intact. Call light within reach. Bed alarm on for safety. Will continue to monitor.
[2022-01-01 08:06] LABS: HEPATITIS B SURFACE AG Negative (Negative)
[2022-01-01 08:37] VITALS: BP 141/59
[2022-01-01] MEDS: AMLODIPINE 10 MG TABLET PO SCH (08:37)
[2022-01-01] MEDS: SUCROFERRIC OXYHYDROXIDE 500 MG PO SCH (08:37)
[2022-01-01] MEDS: [UNRECOGNIZED DRUG - OTHER] PO SCH (08:37)
[2022-01-01] MEDS: APIXABAN 2.5 MG TABLET PO SCH (08:47)
[2022-01-01] MEDS ORDERED: FOLIC ACID/VITAMIN B COMP W-C TABLET PO SCH ×2 (09:00)
[2022-01-01] MEDS ORDERED: CLOPIDOGREL 75 MG TABLET PO SCH (09:00)
[2022-01-01] MEDS: CARVEDILOL 3.125 MG TABLET PO SCH (09:00)
[2022-01-01 09:08] LABS: IRON, SERUM 80 ug/dL (50-175)
--- NOTE | 2022-01-01 11:02 | NUR ---
Patient left hospital against medical advice. Patient AOx3-4. On room air. No signs of acute distress. Patient denied chest pain. Family at bedside. Dr. Shaffer informed of AMA. Belongings accounted for and belongings list signed. IV access removed. ID armband removed. Patient left hospital via private car with family.
[2022-01-01 15:50] LABS: THYROID STIMULATING HORMONE 0.784 mIU/mL (0.358-3.740)
== END 2022-01-01 10:40 | disposition left against medical advice (07) | DRG 205 ==
LOC: ER 08:49 → TELE3 10:19
PROVIDERS: ADMIT Internal Medicine; ATTEND Family Medicine
PROC: 5A1D70Z Performance of Urinary Filtration, Intermittent, Less than 6 Hours Per Day (ICD-10-PCS; principal; 2021-12-31)
DX: M94.0 Chondrocostal junction syndrome [Tietze] (principal); N18.6 End stage renal disease; I13.2 Hypertensive heart and chronic kidney disease with heart failure and with stage 5 chronic kidney disease, or end stage renal disease; D68.59 Other primary thrombophilia; I25.10 Atherosclerotic heart disease of native coronary artery without angina pectoris; R07.9 Chest pain, unspecified; E11.22 Type 2 diabetes mellitus with diabetic chronic kidney disease; E11.65 Type 2 diabetes mellitus with hyperglycemia; I50.9 Heart failure, unspecified; Z99.2 Dependence on renal dialysis; D63.8 Anemia in other chronic diseases classified elsewhere; F32.A Depression, unspecified; I44.0 Atrioventricular block, first degree; Z20.822 Contact with and (suspected) exposure to COVID-19; Z79.01 Long term (current) use of anticoagulants; Z95.5 Presence of coronary angioplasty implant and graft; E78.5 Hyperlipidemia, unspecified; Z95.0 Presence of cardiac pacemaker; D63.1 Anemia in chronic kidney disease; F17.210 Nicotine dependence, cigarettes, uncomplicated; Z74.09 Other reduced mobility; Z86.73 Personal history of transient ischemic attack (TIA), and cerebral infarction without residual deficits; H02.401 Unspecified ptosis of right eyelid; I25.2 Old myocardial infarction; Z79.4 Long term (current) use of insulin
CPT/HCPCS: 36415; 70030-TC; 71045; 83550; 83735; 84100; 84443; 84550; 85025; 86706; 87340; 90937; 93005; 93307; A4663; G0378; J1815; J3490; J7030

== ENCOUNTER 2022-07-19 21:53 | Inpatient (IN) | payer MEDICARE, OTHER ==
[~2022-07-19] VITALS: Ht 180.3 cm; Wt 82.2 kg
[2022-07-19] MEDS ORDERED: ONDANSETRON 4 MG/2 ML VIAL IV ONE (22:15)
[2022-07-19] MEDS ORDERED: ONDANSETRON 4 MG/2 ML VIAL ONE (22:22)
[2022-07-19 23:08] LABS: HEMATOCRIT 25.4 % (36.7-47.1); MEAN CORPUSCULAR HEMOGLOBIN 33.9 uug (23.8-33.4); MEAN CORPUSCULAR VOLUME 100.1 fL (73.0-96.2); PLATELET COUNT (AUTO) 132 K/uL (152-348)
[2022-07-19 23:35] LABS: ALANINE AMINOTRANSFERASE 46 U/L (16-63); ALKALINE PHOSPHATASE 66 U/L (50-136); ASPARTATE AMINOTRANSFERASE 75 U/L (15-37); BILIRUBIN,DIRECT 0.1 mg/dL (0.0-0.2); BILIRUBIN,TOTAL 0.6 mg/dL (0.2-1.0); CARBON DIOXIDE 27 mmol/L (21-32); CHLORIDE 100 mmol/L (98-107); CREATININE 6.5 mg/dL (0.6-1.3); GLUCOSE 221 mg/dL (74-106); LIPASE 104 U/L (73-393); POTASSIUM 3.9 mmol/L (3.5-5.1); TOTAL PROTEIN, SERUM 7.2 g/dL (6.4-8.2); UREA NITROGEN, BLOOD 45 mg/dL (7-18)
--- NOTE | 2022-07-20 00:25 | NUR ---
Dr Mcleod speaking with admitting Rosario Coleman WOOL HANDLER
[2022-07-20] MEDS ORDERED: ONDANSETRON 4 MG/2 ML VIAL IV PRN (01:00)
[2022-07-20] MEDS ORDERED: MORPHINE SULFATE 2 MG/1 ML DISP.SYRIN IV PRN (01:00)
[2022-07-20] MEDS ORDERED: NITROGLYCERIN 0.4 MG/TAB BOTTLE SL PRN (01:00)
[2022-07-20] MEDS ORDERED: DOCUSATE SODIUM 100 MG CAPSULE PO PRN (01:00)
[2022-07-20] MEDS ORDERED: ENOXAPARIN SODIUM 60 MG/0.6 ML DISP.SYRIN SQ SCH (01:00)
--- NOTE | 2022-07-20 01:04 | NUR ---
Dr Mcleod speaking with Dr Viveros for cardio consult
--- NOTE | 2022-07-20 02:48 | NUR ---
report given to Camelia PHIPPS. Patient will go to room 324
[2022-07-20 03:05] LABS: ALANINE AMINOTRANSFERASE 36 U/L (16-63); ALKALINE PHOSPHATASE 59 U/L (50-136); ASPARTATE AMINOTRANSFERASE 78 U/L (15-37); BILIRUBIN,TOTAL 0.5 mg/dL (0.2-1.0); CARBON DIOXIDE 27 mmol/L (21-32); CHLORIDE 99 mmol/L (98-107); CREATININE 6.6 mg/dL (0.6-1.3); GLUCOSE 223 mg/dL (74-106); MAGNESIUM 2.2 mg/dL (1.8-2.4); PHOSPHOROUS 4.1 mg/dL (2.5-4.9); POTASSIUM 3.7 mmol/L (3.5-5.1); TOTAL PROTEIN, SERUM 6.8 g/dL (6.4-8.2); UREA NITROGEN, BLOOD 46 mg/dL (7-18)
--- NOTE | 2022-07-20 03:27 | NUR ---
Pt. admitted to TELE room 314, under care of Rosario Vance OIM ARCHITECT Belongs List completed Camelia PHIPPS aware of patient's arrival
--- NOTE | 2022-07-20 03:40 | NUR ---
Admitted this 71 y/o male from ER via [facility]. Awake, alert and oriented x 3. In no acute distress. Sinus rhythm on tele with HR 70bpm. Oriented to room, staffs, call light, TV remote and bed control. Routine admission care done, plan of care initiated. Call light within reach.
[2022-07-20 04:57] VITALS: BP 143/59
[2022-07-20 05:32] LABS: THYROID STIMULATING HORMONE 0.717 mIU/mL (0.358-3.740)
[2022-07-20 07:28] LABS: HEMATOCRIT 26.8 % (36.7-47.1); MEAN CORPUSCULAR HEMOGLOBIN 34.1 uug (23.8-33.4); MEAN CORPUSCULAR VOLUME 100.1 fL (73.0-96.2); PLATELET COUNT (AUTO) 133 K/uL (152-348)
--- NOTE | 2022-07-20 08:30 | NUR ---
Awake, alert, oriented x 4. Denies chest pain and shortness of breath. Placed on O2 at 1L/NC with O2sat of 99%. Hard stick for blood draw. able to draw PTT after several attempts.
[2022-07-20] MEDS ORDERED: ASPIRIN 81 MG TAB.CHEW PO SCH (09:00)
[2022-07-20] MEDS ORDERED: HEPARIN SODIUM,PORCINE 5,000 UNITS/ML VIAL IV ONE (09:08)
--- NOTE | 2022-07-20 09:30 | NUR ---
PTT 27.4 Heparin 5000 units IV bolus given. Heparin drip started at 1150 unit at 23 ml/hr.
[2022-07-20] MEDS: HEPARIN/D5W DRIP 500 ML IV PRN ×2 (09:32→16:45)
[2022-07-20] MEDS: CLOPIDOGREL 75 MG TABLET PO SCH (11:28)
[2022-07-20] MEDS: ACETAMINOPHEN 325 MG TABLET PO PRN (11:28)
[2022-07-20] MEDS: CARVEDILOL 3.125 MG TABLET PO SCH ×2 (11:28→18:00)
[2022-07-20 11:55] VITALS: BP 142/48
--- NOTE | 2022-07-20 13:00 | NUR ---
EKG done. Report given to Oil Lease Buyer.
[2022-07-20] MEDS ORDERED: DEXTROSE 50% 50 ML DISP.SYRIN IV PRN (14:45)
--- NOTE | 2022-07-20 15:38 | NUR ---
lab called for Troponin level, primary nurse made aware.
--- NOTE | 2022-07-20 15:39 | NUR ---
Troponin [address]. Dr[address] Viveros informed.
--- NOTE | 2022-07-20 15:40 | NUR ---
Unsuccessful with PICC line. Midline , double lumen placed to RUE.
[2022-07-20 16:00] VITALS: BP 149/68
[2022-07-20] MEDS ORDERED: CARVEDILOL 3.125 MG TABLET PO SCH (17:00)
[2022-07-20] MEDS ORDERED: Medication Not On Formulary EA (Rosuvastatin Calcium (Crestor) 1 TAB) PO SCH (18:00)
[2022-07-20] MEDS: BLOOD SUGAR DIAGNOSTIC 1 EACH STRIP VI SCH ×2 (18:00→20:27)
[2022-07-20] MEDS: INSULIN REGULAR, HUMAN 300 UNIT/3 ML VIAL SQ PRN ×2 (18:05→20:30)
--- NOTE | 2022-07-20 18:27 | NUR ---
Hemodialysis ongoing. HR 52. Carvedilol po not given
[2022-07-20] MEDS: GABAPENTIN 100 MG CAPSULE PO SCH (20:18)
[2022-07-20] MEDS: LISINOPRIL 20 MG TABLET PO SCH (20:19)
[2022-07-20] MEDS: ATORVASTATIN 40 MG TABLET PO SCH (20:19)
[2022-07-20 20:24] VITALS: BP 110/60
[2022-07-20] MEDS ORDERED: LISINOPRIL 20 MG TABLET PO SCH (21:00)
[2022-07-20] MEDS: MELATONIN 3 MG TABLET PO PRN (22:23)
[2022-07-21 00:01] VITALS: BP 147/46
[2022-07-21 04:40] VITALS: BP 140/39
[2022-07-21] MEDS: BLOOD SUGAR DIAGNOSTIC 1 EACH STRIP VI SCH ×4 (06:34→20:45)
--- NOTE | 2022-07-21 08:00 | NUR ---
Awake and responsive. No ss of pain or sob satting 98% on 1 lpm. SR on telemetry. Bruit and thrill present on hd site LFA. Needs attended. Kept comfortable. Cont covid precautions. Intermittent coughing noted. Suctioned orally prn. safety precautions in place. Cont to monitor.
[2022-07-21] MEDS: CLOPIDOGREL 75 MG TABLET PO SCH (08:55)
[2022-07-21] MEDS: CARVEDILOL 3.125 MG TABLET PO SCH ×2 (08:55→16:50)
[2022-07-21] MEDS: INSULIN REGULAR, HUMAN 300 UNIT/3 ML VIAL SQ PRN ×4 (08:56→20:45)
[2022-07-21] MEDS ORDERED: ASPIRIN 81 MG TAB.CHEW PO SCH (09:00)
--- NOTE | 2022-07-21 10:57 | NUR ---
Call received from son Margaret and updated. Wants to talk to Dr. Viveros and MD was left a message via secure text regarding family's request. Family wants to transfer patient to [facility]. Gave son's number to ANNETTA Bourgeois to facilitate process.
[2022-07-21] MEDS: HEPARIN/D5W DRIP 500 ML IV PRN (12:21)
--- NOTE | 2022-07-21 12:43 | NUR ---
Patient put on room air per Dr. Esparza's order satting 97-98% at this time. No sob
--- NOTE | 2022-07-21 17:35 | NUR ---
tolerating room air satting 97% no ss of pain or resp distress
[2022-07-21 20:00] VITALS: BP 148/57
[2022-07-21] MEDS: MELATONIN 3 MG TABLET PO PRN (20:26)
[2022-07-21] MEDS: ATORVASTATIN 40 MG TABLET PO SCH (20:26)
[2022-07-21] MEDS: LISINOPRIL 20 MG TABLET PO SCH (20:26)
[2022-07-21] MEDS: GABAPENTIN 100 MG CAPSULE PO SCH (20:26)
[2022-07-22] VITALS: BP 140/58
[2022-07-22 04:00] VITALS: BP 155/53
[2022-07-22] MEDS: BLOOD SUGAR DIAGNOSTIC 1 EACH STRIP VI SCH ×4 (06:45→21:29)
[2022-07-22] MEDS: CARVEDILOL 3.125 MG TABLET PO SCH ×2 (09:34→21:23)
[2022-07-22] MEDS: CLOPIDOGREL 75 MG TABLET PO SCH (09:34)
[2022-07-22] MEDS: INSULIN REGULAR, HUMAN 300 UNIT/3 ML VIAL SQ PRN ×4 (09:34→21:22)
[2022-07-22] MEDS: ACETAMINOPHEN 325 MG TABLET PO PRN (10:49)
[2022-07-22] MEDS: ASPIRIN 325 MG TABLET PO SCH (12:12)
[2022-07-22 12:42] VITALS: BP 152/55
--- NOTE | 2022-07-22 13:57 | NUR ---
COVID swab done as ordered, sent to the lab, awaiting result.
--- NOTE | 2022-07-22 16:32 | NUR ---
Phil (son) requesting MD to give update to PCP Dr Andrea Marina and to him regarding condition and discharge plans. Dr Cornell made aware.
[2022-07-22 16:40] VITALS: BP 144/55
--- NOTE | 2022-07-22 18:32 | NUR ---
Ongoing dialysis at this time. Insulin given per sliding scale. no other concerns identified during the shift. Patient is high risk for fall, walking inside the room without calling for assistance. reoriented the patient, education provided. will endorse to the next shift for continuity of care.
--- NOTE | 2022-07-22 19:40 | NUR ---
Received patient in bed, on going dialysis at this time, no sob no chest pain, tele monitor 1st degree blk, and pacing, then goes to sinus rhythm to 1st degree blk. Patient denies pain at this time, with episode of confusion, cont to monitor.
[2022-07-22 20:00] VITALS: BP 155/75
[2022-07-22] MEDS ORDERED: EPOETIN ALFA-EPBX 10,000 UNIT/ML VIAL IV ONE (21:00)
[2022-07-22] MEDS: GABAPENTIN 100 MG CAPSULE PO SCH (21:23)
[2022-07-22] MEDS: ATORVASTATIN 40 MG TABLET PO SCH (21:23)
[2022-07-22] MEDS: LISINOPRIL 20 MG TABLET PO SCH (21:24)
--- NOTE | 2022-07-22 21:30 | NUR ---
S/P hemodialysis, take out 2 liters tolerate well, cont to monitor.
[2022-07-22] MEDS: MELATONIN 3 MG TABLET PO PRN (21:33)
[2022-07-23 03:06] LABS: HEPATITIS A AB, IgM Negative (Negative); HEPATITIS B SURFACE AG Negative (Negative)
[2022-07-23 04:00] VITALS: BP 128/46
[2022-07-23] MEDS: BLOOD SUGAR DIAGNOSTIC 1 EACH STRIP VI SCH ×2 (06:13→11:43)
--- NOTE | 2022-07-23 06:47 | NUR ---
Patient alert oriented, no sob no chest pain, no complain of pain, anuric unable to collect urine specimen, sat wnl on room air, cont to monitor. patient remains on droplet precaution, with dry cough, endorse to next shift.
[2022-07-23] MEDS: INSULIN REGULAR, HUMAN 300 UNIT/3 ML VIAL SQ PRN ×2 (08:02→11:47)
[2022-07-23] MEDS: CLOPIDOGREL 75 MG TABLET PO SCH (08:22)
[2022-07-23] MEDS: ASPIRIN 325 MG TABLET PO SCH (08:22)
[2022-07-23] MEDS: CARVEDILOL 3.125 MG TABLET PO SCH (08:23)
[2022-07-23] MEDS ORDERED: ASPI81TA31 PO (09:51)
--- NOTE | 2022-07-23 11:30 | NUR ---
PATIENT SEEN BY DR HEADLEY WITH ORDER TO DISCHARGE PATIENT HOME TODAY PLATFORM ARCHITECT SPOKE WITH PATIENTS SON JACKELINE AND HE STATED WILL BE ABLE TO PICK PATIENT UP BY 2PM TODAY.PATIENT AWARE.
[2022-07-23 12:00] VITALS: BP 137/42
--- NOTE | 2022-07-23 13:02 | NUR ---
WOUND CARE CONSULT: REVIEWED CHART, NURSING DOCUMENTATION AND PHOTOS WHICH INDICATE RT ELBOW AND LOWER EXTREMITY DRY ABRASIONS WELL RASH TO PELVIC REGION, PRESENT ON ADMISSION. RECOMMENDATIONS MADE FOR SKIN PROTECTION. DISCUSSED WITH NURSING STAFF. MD IN AGREEMENT WITH PLAN OF CARE.
[2022-07-23] MEDS ORDERED: CLOTRIMAZOLE 1% CREAM 30 GM TUBE TOP SCH (14:00)
--- NOTE | 2022-07-23 14:45 | NUR ---
PATIENT DISCHARGED PICKED UP BY HIS SON IN SATISFACTORY CONDITION WITH NO SOB SPOKE WITH PATIENTS SON RE DISCHARGE INSTRUCTIONS AND HE EXPRESSED UNDERSTANDING.
== END 2022-07-23 14:45 | disposition home or self-care (01) | DRG 280 ==
LOC: ER 21:55 → TELE3 07-20 03:04 → MEDSURG3 07-23 11:25
PROVIDERS: ADMIT Internal Medicine; ATTEND Internal Medicine
PROC: 05H533Z Insertion of Infusion Device into Right Subclavian Vein, Percutaneous Approach (ICD-10-PCS; principal; 2022-07-20)
PROC: B546ZZA Ultrasonography of Right Subclavian Vein, Guidance (ICD-10-PCS; 2022-07-20)
PROC: 5A1D70Z Performance of Urinary Filtration, Intermittent, Less than 6 Hours Per Day (ICD-10-PCS; 2022-07-20)
DX: I13.2 Hypertensive heart and chronic kidney disease with heart failure and with stage 5 chronic kidney disease, or end stage renal disease (principal); I50.23 Acute on chronic systolic (congestive) heart failure; I21.A1 Myocardial infarction type 2; U07.1 COVID-19; N18.6 End stage renal disease; D68.59 Other primary thrombophilia; D63.8 Anemia in other chronic diseases classified elsewhere; E78.00 Pure hypercholesterolemia, unspecified; E88.09 Other disorders of plasma-protein metabolism, not elsewhere classified; F17.210 Nicotine dependence, cigarettes, uncomplicated; E11.22 Type 2 diabetes mellitus with diabetic chronic kidney disease; I25.10 Atherosclerotic heart disease of native coronary artery without angina pectoris; I25.5 Ischemic cardiomyopathy; Z99.2 Dependence on renal dialysis; Z95.5 Presence of coronary angioplasty implant and graft; Z79.01 Long term (current) use of anticoagulants; Z86.73 Personal history of transient ischemic attack (TIA), and cerebral infarction without residual deficits; I25.2 Old myocardial infarction; Z79.4 Long term (current) use of insulin
CPT/HCPCS: 36415; 70450; 71045; 83690; 83735; 84100; 84443; 84484; 85025; 85730; 86705; 86709; 86803; 87040; 87340; 90937; 93005; 93307; A4663; G0378; J0885; J1644; J1815; J2405

== ENCOUNTER 2022-10-11 02:09 | Inpatient (IN) | payer MEDICARE, MEDICAID ==
[~2022-10-11] VITALS: Ht 175.3 cm; Wt 77.1 kg
[2022-10-11] VITALS (8 sets, daily range): BP systolic 136–163; BP diastolic 64–75
[~2022-10-11 02:09] MED LIST changes: -AMLO10TA59 PO; +CHOL100062 PO; -GABA-532 PO; -INSU100C4 SQ; +OMEG1CAP18 PO; -OMEG1CAP55 PO
[2022-10-11] MEDS ORDERED: ASPIRIN 81 MG TAB.CHEW PO ONE (02:15)
[2022-10-11] MEDS ORDERED: ASPIRIN 81 MG TAB.CHEW ONE ×2 (02:21→02:24)
[2022-10-11] MEDS ORDERED: NITROGLYCERIN IV 250 ML ONE (02:24)
[2022-10-11] MEDS ORDERED: NITROGLYCERIN IV 250 ML IV ONE (02:30)
[2022-10-11] MEDS ORDERED: FUROSEMIDE 40 MG/4 ML VIAL IV ONE (02:30)
[2022-10-11] MEDS ORDERED: ASPIRIN 325 MG TABLET PO ONE (02:30)
[2022-10-11] MEDS ORDERED: FUROSEMIDE 40 MG/4 ML VIAL ONE (02:34)
[2022-10-11] MEDS ORDERED: ASPIRIN 325 MG TABLET ONE (02:34)
[2022-10-11] MEDS ORDERED: FUROSEMIDE 20 MG/2 ML VIAL ONE (02:40)
[2022-10-11 02:41] LABS: ABG BASE EXCESS -6.3 mmol/L; ABG HCO3 18.7 mmol/L; ABG PH 7.345 (7.350-7.450); ABG PO2 131.5 mmHg (75.0-100.0); ABG SITE RIGHT RADIAL; ABG TOTAL HEMOGLOBIN 9.5 G/dL (13.5-18.0); COHb 0.1 % (0.5-1.5); O2Hb 98.4 % (94.0-97.0); VENT MODE BIPAP
[2022-10-11] MEDS ORDERED: VENL75TA4 PO (02:47)
--- NOTE | 2022-10-11 02:48 | NUR ---
Pt. BIB son from home, per son father c/o chest pain, and labored breathing. Blood sugar 217 noted, on RA 80-90% noted, called RT, and MD Hawkins ordered to start Bipap. pt. is now on bipap. IV SL 20g noted on R AC. gave all due meds as ordered, xray done. Urologist extension course counselor informed. F/C inserted per MD order. Son is currently at bedside.
--- NOTE | 2022-10-11 02:52 | NUR ---
F/C fr # 16 inserted, urine noted.
[2022-10-11 03:10] LABS: ALANINE AMINOTRANSFERASE 49 U/L (16-63); ALKALINE PHOSPHATASE 81 U/L (50-136); ASPARTATE AMINOTRANSFERASE 36 U/L (15-37); BILIRUBIN,TOTAL 0.5 mg/dL (0.2-1.0); CARBON DIOXIDE 23 mmol/L (21-32); CHLORIDE 101 mmol/L (98-107); CREATININE 6.2 mg/dL (0.6-1.3); GLUCOSE 258 mg/dL (74-106); POTASSIUM 4.1 mmol/L (3.5-5.1); TOTAL PROTEIN, SERUM 7.2 g/dL (6.4-8.2); UREA NITROGEN, BLOOD 62 mg/dL (7-18)
[2022-10-11] MEDS ORDERED: METRONIDAZOLE 500 MG/NS 100ML 0 ML IV ONE (03:12)
[2022-10-11] MEDS ORDERED: CEFTRIAXONE /D5W 50ML IVPB **ER PYXIS IV ONE (03:14)
[2022-10-11 03:16] LABS: HEMATOCRIT 25.5 % (36.7-47.1); MEAN CORPUSCULAR HEMOGLOBIN 33.2 uug (23.8-33.4); MEAN CORPUSCULAR VOLUME 98.9 fL (73.0-96.2); PLATELET COUNT (AUTO) 168 K/uL (152-348)
[2022-10-11] MEDS: POTASSIUM CHLORIDE 50 ML IV SCH ×2 (03:45→04:45)
[2022-10-11] MEDS ORDERED: ACETAMINOPHEN 325 MG TABLET PO PRN (04:30)
[2022-10-11] MEDS ORDERED: MORPHINE SULFATE 2 MG/1 ML DISP.SYRIN IVP PRN (04:30)
[2022-10-11] MEDS ORDERED: INSULIN REGULAR, HUMAN 300 UNITS/3 ML VIAL SQ PRN (04:30)
[2022-10-11] MEDS ORDERED: DEXTROSE 50% 50 ML DISP.SYRIN IV PRN (04:30)
[2022-10-11] MEDS ORDERED: hydrALAZINE HCL 20 MG/1 ML VIAL IV PRN (04:30)
[2022-10-11] MEDS ORDERED: ONDANSETRON 4 MG/2 ML VIAL IV PRN (04:30)
--- NOTE | 2022-10-11 05:58 | NUR ---
Lab called, spoke to Durga, troponin is 186. Doctor was notified.
[2022-10-11] MEDS ORDERED: POTASSIUM CHLORIDE 100 ML ONE (06:10)
--- NOTE | 2022-10-11 06:12 | NUR ---
PATIENT PLACED ON BI/PAP APPROX. 0220 ORDERED BY AMI AUSTIN, INITIAL SETTINGS, 15/5, RR 16, FIO2 @ 50%, WITH ABG TO BE DONE, THEN TITRATE FIO2 @ 40%, BASED ON ABG, PT STABLE SAT 99%. Naye FLETCHER RCP Addendum: 10/11/22 at 0614 by HENRY FLETCHER RT Amended: Links added.
--- NOTE | 2022-10-11 07:00 | NUR ---
recieve patient from face worker nurse pt on BIIPAP VS stable. Nitroglycerin drip at 50 mcg/min and second bag of potassium infusing. pt is AAOx4 resting comfortably
[2022-10-11] MEDS ORDERED: EPOETIN ALFA-EPBX 20,000 UNIT/ML VIAL SQ ONE (07:45)
[2022-10-11] MEDS ORDERED: SUCROFERRIC OXYHYDROXIDE 500 MG PO SCH (08:00)
[2022-10-11] MEDS: BLOOD SUGAR DIAGNOSTIC 1 EACH STRIP VI SCH ×2 (08:09→11:09)
[2022-10-11] MEDS: INSULIN REGULAR, HUMAN 300 UNIT/3 ML VIAL SQ PRN ×2 (08:23→11:10)
[2022-10-11] MEDS ORDERED: DOCUSATE SODIUM 100 MG CAPSULE PO ONE (08:34)
[2022-10-11] MEDS ORDERED: DOCUSATE SODIUM 100 MG CAPSULE PO SCH (09:00)
[2022-10-11] MEDS ORDERED: HEPARIN SODIUM,PORCINE 5,000 UNITS/ML VIAL SQ SCH (09:00)
[2022-10-11] MEDS ORDERED: APIXABAN 2.5 MG TABLET PO SCH (09:00)
[2022-10-11] MEDS ORDERED: OMEGA-3 FATTY ACIDS/FISH OIL CAPSULE PO SCH (09:00)
[2022-10-11] MEDS ORDERED: CHOLECALCIFEROL 1,000 UNIT TABLET PO SCH (09:00)
[2022-10-11] MEDS ORDERED: CLOPIDOGREL 75 MG TABLET PO SCH ×2 (09:00→13:00)
[2022-10-11] MEDS ORDERED: FOLIC ACID/VITAMIN B COMP W-C TABLET PO SCH (09:00)
[2022-10-11] MEDS ORDERED: LIDOCAINE HCL 1% 20 ML VIAL IJ PRN (09:15)
[2022-10-11] MEDS ORDERED: CHOLECALCIFEROL 1,000 UNIT TABLET ONE (09:22)
[2022-10-11] MEDS ORDERED: LIDOCAINE HCL 2% 20 ML VIAL ONE (09:36)
--- NOTE | 2022-10-11 09:50 | NUR ---
HD started VS stable
--- NOTE | 2022-10-11 10:05 | NUR ---
Dr Escobedo rn vascular was updated about care plan and most recent troponin value. No new orders recieved
[2022-10-11] MEDS ORDERED: INSU100V11 SQ (12:12)
[2022-10-11] MEDS ORDERED: INSU100I4 SQ (12:13)
[2022-10-11] MEDS ORDERED: VENL37.591 PO (12:14)
[2022-10-11] MEDS ORDERED: AMLO10TA59 PO (12:26)
[2022-10-11] MEDS ORDERED: INSU100V7 SQ (12:43)
[2022-10-11] MEDS ORDERED: CARVEDILOL 6.25 MG TABLET PO SCH (13:00)
--- NOTE | 2022-10-11 14:51 | NUR ---
pt discharged home with son. VS stable Thorne catheter removed, pt did not void prior to discharge because pt wanted to leave with son prior to voiding. Discharge instructions reviewed with son and patient and all question answered.
[2022-10-11] MEDS ORDERED: Medication Not On Formulary EA (Melatonin 1 TAB) PO SCH (18:00)
[2022-10-11] MEDS ORDERED: Medication Not On Formulary EA (Rosuvastatin Calcium (Crestor) 1 TAB) PO SCH (18:00)
[2022-10-11] MEDS ORDERED: ATORVASTATIN 40 MG TABLET PO SCH (21:00)
[2022-10-11] MEDS ORDERED: LISINOPRIL 20 MG TABLET PO SCH ×2 (21:00)
[2022-10-11] MEDS ORDERED: LISINOPRIL 10 MG TABLET PO SCH (21:00)
[2022-10-11] MEDS ORDERED: MELATONIN 3 MG TABLET PO SCH (21:00)
[2022-10-12 05:07] LABS: HEPATITIS B SURFACE AG Negative (Negative)
== END 2022-10-11 18:47 | disposition home or self-care (01) | DRG 280 ==
LOC: ER 02:16 → TRANSITION 04:00
PROVIDERS: ADMIT Nurse Practitioner Family; ATTEND Nurse Practitioner Family
PROC: 5A1D70Z Performance of Urinary Filtration, Intermittent, Less than 6 Hours Per Day (ICD-10-PCS; principal; 2022-10-11)
PROC: 5A09357 Assistance with Respiratory Ventilation, Less than 24 Consecutive Hours, Continuous Positive Airway Pressure (ICD-10-PCS; 2022-10-11)
DX: I13.2 Hypertensive heart and chronic kidney disease with heart failure and with stage 5 chronic kidney disease, or end stage renal disease (principal); I21.A1 Myocardial infarction type 2; I50.23 Acute on chronic systolic (congestive) heart failure; J96.01 Acute respiratory failure with hypoxia; N18.6 End stage renal disease; E44.1 Mild protein-calorie malnutrition; E87.1 Hypo-osmolality and hyponatremia; E87.20 Acidosis, unspecified; E88.09 Other disorders of plasma-protein metabolism, not elsewhere classified; D63.8 Anemia in other chronic diseases classified elsewhere; E11.22 Type 2 diabetes mellitus with diabetic chronic kidney disease; I25.10 Atherosclerotic heart disease of native coronary artery without angina pectoris; I25.2 Old myocardial infarction; I25.5 Ischemic cardiomyopathy; I48.0 Paroxysmal atrial fibrillation; Z79.01 Long term (current) use of anticoagulants; Z79.4 Long term (current) use of insulin; Z86.73 Personal history of transient ischemic attack (TIA), and cerebral infarction without residual deficits; Z95.0 Presence of cardiac pacemaker; Z99.2 Dependence on renal dialysis; Z86.16 Personal history of COVID-19; Z95.5 Presence of coronary angioplasty implant and graft; Z68.25 Body mass index [BMI] 25.0-25.9, adult; Z87.891 Personal history of nicotine dependence; Z20.822 Contact with and (suspected) exposure to COVID-19
CPT/HCPCS: 36415; 36600; 51702; 71045; 83605; 84484; 85025; 85730; 86706; 87340; 93005; 94660; A4663; G0378; J0696; J0885; J1815; J1940; J3480; J3490; J7040

== ENCOUNTER 2024-03-21 05:22 | Inpatient (IN) | payer MEDICARE, OTHER ==
[~2024-03-21] VITALS: Ht 175.3 cm; Wt 77.6 kg
[~2024-03-21 05:22] MED LIST changes: -CARV3.122 PO; +INSU100V7 SQ; +UBID10CA4 PO; -lantus SUBCUT
[2024-03-21] MEDS ORDERED: FUROSEMIDE 40 MG/4 ML VIAL ONE (06:28)
[2024-03-21] MEDS ORDERED: NITROGLYCERIN OINT 1 GM PACKET TP ONE (06:29)
[2024-03-21] MEDS: FUROSEMIDE 20 MG/2 ML VIAL IVP ONE (06:38)
[2024-03-21] MEDS: NITROGLYCERIN OINT 1 GM PACKET TP ONE (06:40)
[2024-03-21 06:44] LABS: BASOPHILS % (AUTO) 0.6 % (0.0-2.0); EOSINOPHILS # (AUTO) 0.1 K/uL (0.0-0.7); EOSINOPHILS % (AUTO) 1.8 % (0.0-7.0); HEMATOCRIT 34.8 % (36.7-47.1); HEMOGLOBIN 11.6 g/dL (12.5-16.3); LYMPHOCYTES # (AUTO) 0.8 K/uL (0.8-4.8); LYMPHOCYTES % (AUTO) 11.1 % (20.5-51.5); MEAN CORPUSCULAR HEMOGLOBIN 32.9 uug (23.8-33.4); MEAN CORPUSCULAR HGB CONC 33 g/dL (32.5-36.3); MEAN CORPUSCULAR VOLUME 98.6 fL (73.0-96.2); MONOCYTES # (AUTO) 0.5 K/uL (0.1-1.30); MONOCYTES % (AUTO) 6.8 % (0.0-11.0); NEUTROPHILS # (AUTO) 5.4 K/uL (1.8-8.9); NEUTROPHILS % (AUTO) 79.7 % (38.5-71.5); PLATELET COUNT (AUTO) 127 K/uL (152-348); RED BLOOD CELL COUNT(AUTO) 3.53 MIL/uL (4.06-5.63); RED CELL DISTRIBUTION WIDTH 14.1 % (12.1-16.2); WHITE BLOOD COUNT (AUTO) 6.8 K/uL (3.6-10.2)
[2024-03-21 07:02] LABS: CALCIUM 8.9 mg/dL (8.5-10.1); CARBON DIOXIDE 24 mmol/L (21-32); CHLORIDE 100 mmol/L (98-107); CREATININE 6.3 mg/dL (0.6-1.3); GLUCOSE 181 mg/dL (74-106); SODIUM SERUM 137 mmol/L (136-145); UREA NITROGEN, BLOOD 47 mg/dL (7-18)
[2024-03-21 07:04] LABS: POTASSIUM 5.6 mmol/L (3.5-5.1)
[2024-03-21 07:15] LABS: ALANINE AMINOTRANSFERASE 56 U/L (16-63); ALBUMIN 3.3 g/dL (3.4-5.0); ALKALINE PHOSPHATASE 124 U/L (50-136); ASPARTATE AMINOTRANSFERASE 41 U/L (15-37); BILIRUBIN,DIRECT 0.1 mg/dL (0.0-0.2); BILIRUBIN,TOTAL 0.8 mg/dL (0.2-1.0); NT-PRO BNP 27790 pg/mL (0-125)
[2024-03-21] MEDS ORDERED: REMEDY ESSENTIAL ZINC PASTE 113 GM TP PRN (09:45)
[2024-03-21] MEDS ORDERED: MAGNESIUM HYDROXIDE 30 ML LIQUID UDC PO PRN (09:45)
[2024-03-21] MEDS ORDERED: ACETAMINOPHEN 325 MG TABLET PO PRN (09:45)
[2024-03-21] MEDS ORDERED: ONDANSETRON 4 MG/2 ML VIAL IV PRN (09:45)
[2024-03-21 11:24] VITALS: BP 143/55; TEMP 98.4; O2SAT 99
[2024-03-21] MEDS ORDERED: DEXTROSE 50% 50 ML DISP.SYRIN IV PRN (14:15)
[2024-03-21 15:03] VITALS: BP 122/45; TEMP 97.9; O2SAT 96
[2024-03-21] MEDS: BLOOD SUGAR DIAGNOSTIC 1 EACH STRIP VI SCH (16:30)
[2024-03-21] MEDS ORDERED: Medication Not On Formulary EA (Sucroferric Oxyhydroxide (Velphoro) 500 MG) PO SCH (17:00)
[2024-03-21] MEDS: APIXABAN 2.5 MG TABLET PO SCH (17:44)
[2024-03-21] MEDS: INSULIN REGULAR, HUMAN 300 UNIT/3 ML VIAL SQ PRN (17:47)
[2024-03-21] MEDS ORDERED: Medication Not On Formulary EA (Rosuvastatin Calcium (Crestor) 1 TAB) PO SCH ×2 (18:00)
[2024-03-21] MEDS ORDERED: ROSU40TA23 PO (18:47)
[2024-03-21 20:00] VITALS: BP 149/72
[2024-03-21] MEDS ORDERED: ATORVASTATIN 40 MG TABLET PO SCH ×2 (21:00)
[2024-03-21] MEDS ORDERED: Medication Not On Formulary EA (Rosuvastatin Calcium 40 MG) PO SCH (21:00)
[2024-03-21] MEDS: MELATONIN 3 MG TABLET PO SCH (21:36)
[2024-03-21] MEDS: CLOPIDOGREL 75 MG TABLET PO SCH (21:36)
[2024-03-22] VITALS: BP 101/52; TEMP 98.4
[2024-03-22 06:00] VITALS: BP 137/59; TEMP 98.2
[2024-03-22 07:01] LABS: BASOPHILS # (AUTO) 0.1 K/UL (0.0-0.2); EOSINOPHILS # (AUTO) 0.2 K/uL (0.0-0.7); EOSINOPHILS % (AUTO) 2.9 % (0.0-7.0); HEMATOCRIT 30.2 % (36.7-47.1); HEMOGLOBIN 10.4 g/dL (12.5-16.3); LYMPHOCYTES # (AUTO) 1.2 K/uL (0.8-4.8); LYMPHOCYTES % (AUTO) 20.7 % (20.5-51.5); MEAN CORPUSCULAR HEMOGLOBIN 33.1 uug (23.8-33.4); MEAN CORPUSCULAR HGB CONC 34 g/dL (32.5-36.3); MEAN CORPUSCULAR VOLUME 96.1 fL (73.0-96.2); MONOCYTES # (AUTO) 0.5 K/uL (0.1-1.30); MONOCYTES % (AUTO) 8.4 % (0.0-11.0); PLATELET COUNT (AUTO) 120 K/uL (152-348); RED BLOOD CELL COUNT(AUTO) 3.14 MIL/uL (4.06-5.63); RED CELL DISTRIBUTION WIDTH 14.1 % (12.1-16.2)
[2024-03-22 07:15] LABS: CALCIUM 8.4 mg/dL (8.5-10.1); CARBON DIOXIDE 22 mmol/L (21-32); CHLORIDE 98 mmol/L (98-107); CREATININE 5.2 mg/dL (0.6-1.3); GLUCOSE 162 mg/dL (74-106); MAGNESIUM 2.3 mg/dL (1.8-2.4); PHOSPHOROUS 4.4 mg/dL (2.5-4.9); POTASSIUM 4.2 mmol/L (3.5-5.1); SODIUM SERUM 133 mmol/L (136-145); UREA NITROGEN, BLOOD 32 mg/dL (7-18)
[2024-03-22 07:32] LABS: DIFFERENTIAL COMMENT 1
[2024-03-22 07:58] VITALS: BP 153/74; TEMP 97.5
[2024-03-22] MEDS ORDERED: UBIDECARENONE PO SCH (09:00)
[2024-03-22] MEDS: OMEGA-3 FATTY ACIDS/FISH OIL CAPSULE PO SCH (09:18)
[2024-03-22] MEDS: FOLIC ACID/VITAMIN B COMP W-C TABLET PO SCH (09:18)
[2024-03-22] MEDS: CHOLECALCIFEROL 1,000 UNIT TABLET PO SCH (09:18)
[2024-03-22 11:58] VITALS: BP 119/53; TEMP 97.6; O2SAT 96
[2024-03-22 15:58] VITALS: BP 135/62; TEMP 97.5; O2SAT 99
[2024-03-22 20:00] VITALS: BP 136/68; TEMP 98.2; O2SAT 98
[2024-03-22] MEDS: ATORVASTATIN 40 MG TABLET PO SCH (21:16)
[2024-03-23] VITALS: BP 128/60; TEMP 99; O2SAT 98
[2024-03-23 04:18] VITALS: BP 117/63; TEMP 98.5; O2SAT 99
[2024-03-23 07:22] LABS: CALCIUM 8.6 mg/dL (8.5-10.1); CARBON DIOXIDE 26 mmol/L (21-32); CHLORIDE 99 mmol/L (98-107); GLUCOSE 179 mg/dL (74-106); POTASSIUM 4.5 mmol/L (3.5-5.1); SODIUM SERUM 136 mmol/L (136-145); UREA NITROGEN, BLOOD 34 mg/dL (7-18)
[2024-03-23 07:56] VITALS: BP 127/56; TEMP 98; O2SAT 98
== END 2024-03-23 11:30 | disposition home or self-care (01) | DRG 280 ==
LOC: ER 05:23 → TELE3 10:37
PROVIDERS: ADMIT Nurse Practitioner Acute Care; ATTEND Nurse Practitioner Acute Care
PROC: 5A1D70Z Performance of Urinary Filtration, Intermittent, Less than 6 Hours Per Day (ICD-10-PCS; principal; 2024-03-21)
DX: I13.2 Hypertensive heart and chronic kidney disease with heart failure and with stage 5 chronic kidney disease, or end stage renal disease (principal); I50.23 Acute on chronic systolic (congestive) heart failure; I21.A1 Myocardial infarction type 2; N18.6 End stage renal disease; J96.01 Acute respiratory failure with hypoxia; E44.1 Mild protein-calorie malnutrition; Z99.2 Dependence on renal dialysis; I25.5 Ischemic cardiomyopathy; F17.210 Nicotine dependence, cigarettes, uncomplicated; Z91.119 Patient's noncompliance with dietary regimen due to unspecified reason; Z86.16 Personal history of COVID-19; Z86.73 Personal history of transient ischemic attack (TIA), and cerebral infarction without residual deficits; I25.10 Atherosclerotic heart disease of native coronary artery without angina pectoris; Z95.5 Presence of coronary angioplasty implant and graft; Z95.0 Presence of cardiac pacemaker; I48.0 Paroxysmal atrial fibrillation; Z79.01 Long term (current) use of anticoagulants; Z79.02 Long term (current) use of antithrombotics/antiplatelets; E11.22 Type 2 diabetes mellitus with diabetic chronic kidney disease; I25.82 Chronic total occlusion of coronary artery; I25.2 Old myocardial infarction; H02.401 Unspecified ptosis of right eyelid; E87.5 Hyperkalemia; E88.09 Other disorders of plasma-protein metabolism, not elsewhere classified; E78.00 Pure hypercholesterolemia, unspecified; D63.1 Anemia in chronic kidney disease; Z79.4 Long term (current) use of insulin
CPT/HCPCS: 36415; 71045; 83735; 84100; 84484; 85025; 85730; 90937; 93005; 93307; A4663; G0378; J1815; J1940; J7040

== ENCOUNTER 2024-06-01 02:55 | Inpatient (IN) | payer MEDICARE, OTHER ==
[~2024-06-01] VITALS: Ht 175.3 cm; Wt 77.6 kg
[~2024-06-01 02:55] MED LIST changes: -ROSU20TA2 PO; +ROSU40TA23 PO
[2024-06-01] MEDS ORDERED: NITROGLYCERIN 0.4 MG/TAB BOTTLE SL ONE (03:06)
[2024-06-01] MEDS ORDERED: ASPIRIN 81 MG TAB.CHEW ONE (03:12)
[2024-06-01] MEDS ORDERED: FUROSEMIDE 40 MG/4 ML VIAL ONE (03:12)
[2024-06-01] MEDS ORDERED: ENALAPRILAT DIHYDRATE 1.25 MG/1 ML VIAL IV ONE ×2 (03:12→03:15)
[2024-06-01] MEDS ORDERED: NITROGLYCERIN OINT 1 GM PACKET TP ONE (03:12)
[2024-06-01] MEDS ORDERED: LIDOCAINE 2% (GLYDO= UROJET) 10 ML JELLY MM ONE (03:23)
[2024-06-01] MEDS: FUROSEMIDE 40 MG/4 ML VIAL IV ONE (03:25)
[2024-06-01] MEDS: NITROGLYCERIN OINT 1 GM PACKET TP ONE (03:26)
[2024-06-01] MEDS: ASPIRIN 81 MG TAB.CHEW PO ONE (03:26)
[2024-06-01] MEDS: NITROGLYCERIN 0.4 MG/TAB BOTTLE SL ONE (03:26)
[2024-06-01 03:27] LABS: BASOPHILS # (AUTO) 0.1 K/UL (0.0-0.2); BASOPHILS % (AUTO) 1.1 % (0.0-2.0); EOSINOPHILS # (AUTO) 0.3 K/uL (0.0-0.7); EOSINOPHILS % (AUTO) 3.9 % (0.0-7.0); HEMATOCRIT 33.4 % (36.7-47.1); HEMOGLOBIN 10.9 g/dL (12.5-16.3); LYMPHOCYTES # (AUTO) 2.5 K/uL (0.8-4.8); LYMPHOCYTES % (AUTO) 29.8 % (20.5-51.5); MEAN CORPUSCULAR HEMOGLOBIN 32.5 uug (23.8-33.4); MEAN CORPUSCULAR HGB CONC 33 g/dL (32.5-36.3); MEAN CORPUSCULAR VOLUME 99.2 fL (73.0-96.2); MONOCYTES # (AUTO) 0.6 K/uL (0.1-1.30); MONOCYTES % (AUTO) 7.2 % (0.0-11.0); NEUTROPHILS # (AUTO) 4.9 K/uL (1.8-8.9); PLATELET COUNT (AUTO) 160 K/uL (152-348); RED BLOOD CELL COUNT(AUTO) 3.37 MIL/uL (4.06-5.63); RED CELL DISTRIBUTION WIDTH 14.2 % (12.1-16.2); WHITE BLOOD COUNT (AUTO) 8.4 K/uL (3.6-10.2)
[2024-06-01] MEDS: ENALAPRILAT DIHYDRATE 1.25 MG/1 ML VIAL IV ONE (03:27)
[2024-06-01 03:40] LABS: DIFFERENTIAL COMMENT 1
[2024-06-01] MEDS: LIDOCAINE 2% (GLYDO= UROJET) 10 ML JELLY MM ONE (03:41)
[2024-06-01 03:45] LABS: CALCIUM 8.8 mg/dL (8.5-10.1); CARBON DIOXIDE 28 mmol/L (21-32); CHLORIDE 100 mmol/L (98-107); CREATININE 5.6 mg/dL (0.6-1.3); GLUCOSE 254 mg/dL (74-106); POTASSIUM 3.4 mmol/L (3.5-5.1); SODIUM SERUM 140 mmol/L (136-145); UREA NITROGEN, BLOOD 32 mg/dL (7-18)
[2024-06-01 03:48] LABS: MAGNESIUM 2.6 mg/dL (1.8-2.4); PHOSPHOROUS 4.1 mg/dL (2.5-4.9)
[2024-06-01 03:58] LABS: ALANINE AMINOTRANSFERASE 52 U/L (16-63); ALKALINE PHOSPHATASE 139 U/L (50-136); ASPARTATE AMINOTRANSFERASE 19 U/L (15-37); BILIRUBIN,DIRECT 0.2 mg/dL (0.0-0.2); BILIRUBIN,TOTAL 0.7 mg/dL (0.2-1.0); NT-PRO BNP 29120 pg/mL (0-125); TOTAL PROTEIN, SERUM 7.5 g/dL (6.4-8.2)
[2024-06-01] MEDS ORDERED: REMEDY ESSENTIAL ZINC PASTE 113 GM TP PRN (04:15)
[2024-06-01] MEDS ORDERED: NITROGLYCERIN OINT 1 GM PACKET TP PRN (04:15)
[2024-06-01] MEDS ORDERED: ACETAMINOPHEN 325 MG TABLET PO PRN (04:15)
[2024-06-01] MEDS ORDERED: MAGNESIUM HYDROXIDE 30 ML LIQUID UDC PO PRN (04:15)
[2024-06-01] MEDS ORDERED: ONDANSETRON 4 MG/2 ML VIAL IV PRN (04:15)
[2024-06-01] MEDS ORDERED: ENOXAPARIN SODIUM 40 MG/0.4 ML DISP.SYRIN SQ ONE (04:39)
[2024-06-01] MEDS: ENOXAPARIN SODIUM 40 MG/0.4 ML DISP.SYRIN SQ SCH (04:46)
[2024-06-01] MEDS ORDERED: METO5TAB7 PO (05:48)
[2024-06-01 06:33] LABS: BASOPHILS # (AUTO) 0.1 K/UL (0.0-0.2); BASOPHILS % (AUTO) 1.4 % (0.0-2.0); DIFFERENTIAL COMMENT 0; EOSINOPHILS # (AUTO) 0.1 K/uL (0.0-0.7); EOSINOPHILS % (AUTO) 1.3 % (0.0-7.0); HEMATOCRIT 30.3 % (36.7-47.1); HEMOGLOBIN 9.9 g/dL (12.5-16.3); LYMPHOCYTES # (AUTO) 0.6 K/uL (0.8-4.8); LYMPHOCYTES % (AUTO) 8.4 % (20.5-51.5); MEAN CORPUSCULAR HEMOGLOBIN 31.8 uug (23.8-33.4); MEAN CORPUSCULAR HGB CONC 33 g/dL (32.5-36.3); MEAN CORPUSCULAR VOLUME 97.4 fL (73.0-96.2); MONOCYTES # (AUTO) 0.3 K/uL (0.1-1.30); MONOCYTES % (AUTO) 4.9 % (0.0-11.0); NEUTROPHILS # (AUTO) 5.6 K/uL (1.8-8.9); PLATELET COUNT (AUTO) 111 K/uL (152-348); RED CELL DISTRIBUTION WIDTH 13.9 % (12.1-16.2); WHITE BLOOD COUNT (AUTO) 6.6 K/uL (3.6-10.2)
[2024-06-01 06:59] LABS: ALANINE AMINOTRANSFERASE 51 U/L (16-63); ALBUMIN 2.9 g/dL (3.4-5.0); ALKALINE PHOSPHATASE 127 U/L (50-136); ASPARTATE AMINOTRANSFERASE 18 U/L (15-37); BILIRUBIN,DIRECT 0.2 mg/dL (0.0-0.2); BILIRUBIN,TOTAL 0.6 mg/dL (0.2-1.0); CALCIUM 8.6 mg/dL (8.5-10.1); CARBON DIOXIDE 30 mmol/L (21-32); CHLORIDE 103 mmol/L (98-107); CREATININE 4.2 mg/dL (0.6-1.3); GLUCOSE 196 mg/dL (74-106); MAGNESIUM 2.4 mg/dL (1.8-2.4); NT-PRO BNP 23553 pg/mL (0-125); PHOSPHOROUS 3.2 mg/dL (2.5-4.9); POTASSIUM 3.8 mmol/L (3.5-5.1); SODIUM SERUM 141 mmol/L (136-145); UREA NITROGEN, BLOOD 27 mg/dL (7-18)
[2024-06-01 10:21] VITALS: TEMP 97.6
[2024-06-01] MEDS: FUROSEMIDE 20 MG/2 ML VIAL IV SCH (11:43)
[2024-06-01] MEDS: PANTOPRAZOLE SODIUM 40 MG VIAL IV SCH (11:43)
[2024-06-01 12:06] VITALS: BP 113/39; TEMP 98.1; O2SAT 100
[2024-06-01] MEDS ORDERED: INSU100V11 SQ (13:30)
[2024-06-01 16:00] VITALS: BP 120/42; TEMP 98.7; O2SAT 97
[2024-06-01] MEDS ORDERED: BLOOD SUGAR DIAGNOSTIC 1 EACH STRIP VI SCH (17:00)
[2024-06-01] MEDS ORDERED: DEXTROSE 50% 50 ML DISP.SYRIN IV PRN ×2 (17:00)
[2024-06-01] MEDS ORDERED: INSULIN REGULAR, HUMAN 300 UNIT/3 ML VIAL SQ PRN (17:00)
[2024-06-01] MEDS ORDERED: INSULIN REGULAR, HUMAN 300 UNITS/3 ML VIAL SQ PRN (17:00)
[2024-06-01] MEDS: INSULIN REGULAR, HUMAN 300 UNIT/3 ML VIAL SQ PRN (17:18)
[2024-06-01] MEDS: BLOOD SUGAR DIAGNOSTIC 1 EACH STRIP VI SCH (17:19)
[2024-06-01] MEDS ORDERED: EPOETIN ALFA 20,000 UNIT/ML ML SQ ONE (18:30)
[2024-06-01] MEDS: EPOETIN ALFA 20,000 UNIT/ML ML SQ ONE (18:39)
[2024-06-01 20:00] VITALS: BP 109/54; TEMP 97.9; O2SAT 98
[2024-06-01] MEDS: INSULIN REGULAR, HUMAN 300 UNITS/3 ML VIAL SQ PRN (21:16)
[2024-06-01] MEDS: MELATONIN 3 MG TABLET PO SCH (21:20)
[2024-06-02] VITALS: BP 128/59; TEMP 98.3; O2SAT 96
[2024-06-02] MEDS ORDERED: HEPARIN SODIUM,PORCINE 5,000 UNITS/ML VIAL SQ SCH (09:00)
[2024-06-02 09:36] LABS: HEMATOCRIT 32.4 % (36.7-47.1); HEMOGLOBIN 10.5 g/dL (12.5-16.3); MEAN CORPUSCULAR VOLUME 99.7 fL (73.0-96.2); RED BLOOD CELL COUNT(AUTO) 3.25 MIL/uL (4.06-5.63); WHITE BLOOD COUNT (AUTO) 5.2 K/uL (3.6-10.2)
[2024-06-02 09:37] LABS: BASOPHILS % (AUTO) 0.9 % (0.0-2.0); EOSINOPHILS % (AUTO) 3.6 % (0.0-7.0); LYMPHOCYTES # (AUTO) 1.2 K/uL (0.8-4.8); MEAN CORPUSCULAR HEMOGLOBIN 32.5 uug (23.8-33.4); MEAN CORPUSCULAR HGB CONC 33 g/dL (32.5-36.3); MONOCYTES % (AUTO) 9.1 % (0.0-11.0); NEUTROPHILS # (AUTO) 3.3 K/uL (1.8-8.9); NEUTROPHILS % (AUTO) 63.4 % (38.5-71.5); PLATELET COUNT (AUTO) 123 K/uL (152-348); RED CELL DISTRIBUTION WIDTH 14.1 % (12.1-16.2)
[2024-06-02 09:38] LABS: EOSINOPHILS # (AUTO) 0.2 K/uL (0.0-0.7); MONOCYTES # (AUTO) 0.5 K/uL (0.1-1.30)
[2024-06-02 10:07] LABS: HEPATITIS B SURFACE AB, QUAL Reactive (.); HEPATITIS B SURFACE AG Negative (Negative)
[2024-06-02] MEDS ORDERED: hydrALAZINE HCL 25 MG TABLET PO PRN (12:00)
[2024-06-02] MEDS: OMEGA-3 FATTY ACIDS/FISH OIL CAPSULE PO SCH (13:00)
[2024-06-02 14:05] LABS: CARBON DIOXIDE 32 mmol/L (21-32); CHLORIDE 101 mmol/L (98-107); GLUCOSE 279 mg/dL (74-106); POTASSIUM 4.4 mmol/L (3.5-5.1); SODIUM SERUM 141 mmol/L (136-145)
[2024-06-02 14:06] LABS: CALCIUM 9.3 mg/dL (8.5-10.1); CREATININE 5.2 mg/dL (0.6-1.3); PHOSPHOROUS 3.9 mg/dL (2.5-4.9); UREA NITROGEN, BLOOD 33 mg/dL (7-18)
[2024-06-02 16:33] VITALS: O2SAT 95
[2024-06-02 16:39] LABS: MAGNESIUM 2.7 mg/dL (1.8-2.4)
[2024-06-02] MEDS ORDERED: Medication Not On Formulary EA (Sucroferric Oxyhydroxide (Velphoro) 500 MG) PO SCH (17:00)
[2024-06-02] MEDS ORDERED: Medication Not On Formulary EA (Melatonin 1 TAB) PO SCH (18:00)
[2024-06-02] MEDS ORDERED: LISINOPRIL 20 MG TABLET PO SCH (21:00)
[2024-06-02] MEDS ORDERED: MELATONIN 3 MG TABLET PO SCH (21:00)
[2024-06-02] MEDS ORDERED: ATORVASTATIN 40 MG TABLET PO SCH (21:00)
[2024-06-02] MEDS ORDERED: CLOPIDOGREL 75 MG TABLET PO SCH (21:00)
[2024-06-02] MEDS ORDERED: Medication Not On Formulary EA (Rosuvastatin Calcium 40 MG) PO SCH (21:00)
[2024-06-03] MEDS ORDERED: PANTOPRAZOLE SODIUM 40 MG TABLET.DR PO SCH (07:00)
[2024-06-03] MEDS ORDERED: UBIDECARENONE PO SCH (09:00)
[2024-06-03] MEDS ORDERED: FOLIC ACID/VITAMIN B COMP W-C TABLET PO SCH (09:00)
== END 2024-06-02 18:41 | disposition left against medical advice (07) | DRG 280 ==
LOC: ER 03:02 → TELE3 09:18
PROVIDERS: ADMIT Nurse Practitioner Family; ATTEND Nurse Practitioner Family
PROC: 5A1D70Z Performance of Urinary Filtration, Intermittent, Less than 6 Hours Per Day (ICD-10-PCS; principal; 2024-06-01)
PROC: 5A09357 Assistance with Respiratory Ventilation, Less than 24 Consecutive Hours, Continuous Positive Airway Pressure (ICD-10-PCS; 2024-06-01)
DX: I13.2 Hypertensive heart and chronic kidney disease with heart failure and with stage 5 chronic kidney disease, or end stage renal disease (principal); I50.43 Acute on chronic combined systolic (congestive) and diastolic (congestive) heart failure; I21.4 Non-ST elevation (NSTEMI) myocardial infarction; J96.01 Acute respiratory failure with hypoxia; N18.6 End stage renal disease; I48.0 Paroxysmal atrial fibrillation; Z95.5 Presence of coronary angioplasty implant and graft; Z95.0 Presence of cardiac pacemaker; Z79.4 Long term (current) use of insulin; Z79.01 Long term (current) use of anticoagulants; Z99.2 Dependence on renal dialysis; I25.5 Ischemic cardiomyopathy; Z86.73 Personal history of transient ischemic attack (TIA), and cerebral infarction without residual deficits; I70.0 Atherosclerosis of aorta; E87.6 Hypokalemia; E88.09 Other disorders of plasma-protein metabolism, not elsewhere classified; H02.401 Unspecified ptosis of right eyelid; F17.210 Nicotine dependence, cigarettes, uncomplicated; I25.10 Atherosclerotic heart disease of native coronary artery without angina pectoris; E83.42 Hypomagnesemia; E11.22 Type 2 diabetes mellitus with diabetic chronic kidney disease; G51.0 Bell's palsy; D64.9 Anemia, unspecified; R31.9 Hematuria, unspecified; E78.00 Pure hypercholesterolemia, unspecified
CPT/HCPCS: 36415; 36600; 71045; 83605; 83735; 84100; 84443; 84484; 85025; 86706; 87040; 87340; 90937; 93005; A4606; A4663; G0378; J0885; J1644; J1650; J1815; J1940; J2470; J3490

== ENCOUNTER 2025-01-13 15:00 | Emergency (ER) | payer MEDICARE, OTHER ==
[~2025-01-13] VITALS: Ht 175.3 cm; Wt 78.9 kg
[~2025-01-13 15:00] MED LIST changes: +INSU100V11 SQ; +METO5TAB7 PO
[2025-01-13 16:09] VITALS: O2SAT 99
== END 2025-01-13 18:36 | disposition left against medical advice (07) ==
LOC: ER 15:00
DX: R60.0 Localized edema (principal); Z53.21 Procedure and treatment not carried out due to patient leaving prior to being seen by health care provider
CPT/HCPCS: A4606; A4663